=== PATIENT | male | born 1980 | race Hispanic/Latino ===

== ENCOUNTER 2018-03-03 21:27 | Emergency (ER) | payer OTHER ==
--- OUTSIDE RECORDS SUMMARY | 2018-03-03 21:29 | XMS REPORT ---
:1980 [facility] Address [address] [place] [address] Dr. Diaz. [address] [place] [address] Care Team Providers Name Role Phone DR DONITA VELASCO Unavailable Unavailable Problems This patient has no known problems. Allergies, Adverse Reactions, Alerts This patient has no known allergies or adverse reactions. Medications This patient has no known medications. Encounters Start End Encounter Admission Attending Care Care Encounter Date/Time Date/Time Type Type Clinicians Facility Department ID 2017-03-09 Inpatient C ARACELIS VELASCO [facility]VLG PT [id number] 10:30:00 DONITA
[2018-03-03 22:36] LABS: Urine Blood NEGATIVE (NEG); Urine Glucose NEGATIVE (NEG); Urine Protein NEGATIVE (NEG); Urine Specific Gravity 1.025 (1.005-1.030); Urine pH 5.5 (5.0-7.0)
[2018-03-03] MEDS ORDERED: CEFTRIAXONE 250 MG/VIAL ONE (23:13)
[2018-03-03] MEDS ORDERED: WATER FOR INJ,STERILE 10 ML ONE (23:13)
[2018-03-03] MEDS ORDERED: AZITHROMYCIN 1 GM PACKET ONE (23:13)
--- NOTE | 2018-03-03 23:26 | ER ---
Nurse's Notes [facility] Name: Aidan Gagnon Age: 37 yrs Sex: Male : 1980 Arrival Date: 03/03/2018 Time: 21:34 Bed 25 Private MD: None, None Diagnosis: Encounter for screening for other diseases and disorders-possible STD Presentation: 03/03 21:44 Presenting complaint: Patient states: I have been having pain in my genital area for a ed1 few days. Transition of care: patient was not received from another setting of care. Onset of symptoms was February 27, 2018. Risk Assessment: Do you want to hurt yourself or someone else? Patient reports no desire to harm self or others. Initial Sepsis Screen: Does the patient meet any 2 criteria? No. Patient's initial sepsis screen is negative. Does the patient have a suspected source of infection? No. Patient's initial sepsis screen is negative. Care prior to arrival: None. 21:44 Method Of Arrival: Ambulatory ed1 21:51 Acuity: ELSY 3 bb Triage Assessment: 21:46 General: Appears in no apparent distress. Behavior is calm, cooperative. Pain: ed1 Complains of pain in suprapubic area and groin Pain does not radiate. Pain currently is 6 out of 10 on a pain scale. Quality of pain is described as burning, Pain began 2-3 days ago. Is continuous. EENT: No signs and/or symptoms were reported regarding the EENT system. Neuro: Level of Consciousness is awake, alert, obeys commands, Oriented to person, place, time, situation. Cardiovascular: Denies chest pain, Heart tones S1 S2 present. Respiratory: Airway is patent Respiratory effort is even, unlabored, Respiratory pattern is regular, symmetrical, Denies cough, shortness of breath. GI: Abdomen is non-distended, Bowel sounds present X 4 quads. Abd is soft and non tender X 4 quads. Patient currently denies diarrhea, nausea, vomiting. : Urine is clear, Reports pain in suprapubic area. Derm: Skin is intact, is healthy with good turgor, Skin is dry, Skin is normal, Skin temperature is warm. Musculoskeletal: Circulation, motion, and sensation intact. Capillary refill < 3 seconds, in bilateral fingers. Range of motion: intact in all extremities. 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 - Social history:: Smoking status: Patient/guardian denies using tobacco. - Ebola Screening: : Patient negative for fever greater than or equal to 101.5 degrees Fahrenheit, and additional compatible Ebola Virus Disease symptoms Patient denies exposure to infectious person Patient denies travel to an Ebola-affected area in the 21 days before illness onset No symptoms or risks identified at this time. Screenin:49 Abuse screen: Denies threats or abuse. Denies injuries from another. Nutritional ed1 screening: No deficits noted. Tuberculosis screening: No symptoms or risk factors identified. Fall Risk None identified. Assessment: 21:49 General: See triage assessment. ed1 21:51 General: I agree with triage assessment. bb 22:38 Reassessment: Patient appears in no apparent distress at this time. No changes from ed1 previously documented assessment. Patient and/or family updated on plan of care and expected duration. Pain level reassessed. Patient is alert, oriented x 3, equal unlabored respirations, skin warm/dry/pink. Patient states symptoms have not improved. 23:48 Reassessment: Patient appears in no apparent distress at this time. Patient and/or ed1 family updated on plan of care and expected duration. Pain level reassessed. Patient is alert, oriented x 3, equal unlabored respirations, skin warm/dry/pink. Patient states feeling better. Patient states symptoms have improved. Vital Signs: 21:46 BP 152 / 90; Pulse 87; Resp 18; Temp 97.5(O); Pulse Ox 96% on R/A; Weight 95.25 kg (R); ed1 Height 5 ft. 7 in. (170.18 cm) (R); Pain 6/10; 22:38 BP 136 / 95; Pulse 82; Resp 17; Pulse Ox 96% on R/A; Pain 6/10; ed1 23:48 BP 129 / 76; Pulse 83; Resp 17; Pulse Ox 100% on R/A; Pain 2/10; ed1 21:46 Body Mass Index 32.89 (95.25 kg, 170.18 cm) ed1 ED Course: 21:34 Patient arrived in ED. mr 21:34 None, None is Private Physician. mr 21:38 Adriana Palma LVN is Primary Nurse. ed1 21:46 Arm band placed on left wrist. Patient placed in an exam room, on a stretcher, on pulse ed1 oximetry, Patient notified of wait time. 21:49 Awaiting ED provider evaluation. ed1 21:49 Patient has correct armband on for positive identification. Bed in low position. Call ed1 light in reach. Side rails up X 1. Pulse ox on. NIBP on. Warm blanket given. 21:51 Triage completed. bb 22:45 Holland Farmer PA is PHCP. cp 22:45 Alcides Panchal MD is Attending Physician. cp 23:20 Roderick Lemos MD is Referral Physician. cp 23:48 No provider procedures requiring assistance completed. Patient did not have IV access ed1 during this emergency room visit. Administered Medications: 23:12 Drug: Rocephin (cefTRIAXone) 250 mg Route: IM; Site: right ventrogluteal; ed1 23:50 Follow up: Response: No adverse reaction ed1 23:12 Drug: Zithromax 1 grams Route: PO; ed1 23:49 Follow up: Response: No adverse reaction ed1 Outcome: 23:26 Discharge ordered by . cp 23:48 Discharged to home ambulatory. ed1 23:48 Condition: good 23:48 Discharge instructions given to patient, Instructed on discharge instructions, follow up and referral plans. Demonstrated understanding of instructions, follow-up care. 23:50 Patient left the ED. ed1 Signatures: Dali Good mr ManningSandra, RN RN bb Adriana Palma LVN WAD BLANKING PRESS ADJUSTER ed1 Holland Farmer PA PA cp
--- NOTE | 2018-03-03 23:27 | EDPHYS ---
Physician Documentation [facility] Name: Aidan Gagnon Age: 37 yrs Sex: Male : 1980 Arrival Date: 03/03/2018 Time: 21:34 Bed 25 Private MD: None, None ED Physician Alcides Panchal HPI: 03/03 22:59 This 37 yrs old Male presents to ER via Ambulatory with complaints of Urinary cp Problem. 22:59 The patient presents with a possible STD exposure. cp 22:59 Associated signs and symptoms: Pertinent positives: dysuria, penile discharge. Patient cp reports having unprotected intercourse with new partner. 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 - Social history:: Smoking status: Patient/guardian denies using tobacco. - Ebola Screening: : Patient negative for fever greater than or equal to 101.5 degrees Fahrenheit, and additional compatible Ebola Virus Disease symptoms Patient denies exposure to infectious person Patient denies travel to an Ebola-affected area in the 21 days before illness onset No symptoms or risks identified at this time. ROS: 23:05 Constitutional: Negative for body aches, chills, fever, poor PO intake. cp 23:05 Cardiovascular: Negative for chest pain. cp 23:05 Respiratory: Negative for cough, shortness of breath, wheezing. 23:05 Abdomen/GI: Negative for abdominal pain, nausea, vomiting, and diarrhea. 23:05 Back: Negative for pain at rest, pain with movement, radiated pain. 23:05 : Positive for burning with urination, penile discharge, penile pain, Negative for hematuria, flank pain, testicular pain 23:05 Skin: Negative for cellulitis, rash. 23:05 Neuro: Negative for headache, weakness. 23:05 All other systems are negative. Exam: 23:05 Head/Face: Normocephalic, atraumatic. cp 23:05 Constitutional: The patient appears in no acute distress, alert, awake, comfortable, non-toxic, well developed, well nourished. 23:05 Eyes: Periorbital structures: appear normal, Conjunctiva: normal, no exudate, no injection, Lids and lashes: appear normal, bilaterally. 23:05 ENT: External ear(s): are unremarkable, Nose: is normal, Mouth: is normal, Posterior pharynx: Airway: no evidence of obstruction, patent. 23:05 Chest/axilla: Inspection: normal. 23:05 Cardiovascular: Rate: normal. 23:05 Respiratory: the patient does not display signs of respiratory distress, Respirations: normal. 23:05 Abdomen/GI: Inspection: abdomen appears normal, Palpation: abdomen is soft and non-tender, in all quadrants, voluntary guarding, is not appreciated, involuntary guarding, is not appreciated. 23:05 : Male external genitalia: Circumcision noted. swelling: is not appreciated, tenderness, is not appreciated. 23:05 Skin: lesion(s), are not present, no rash present. Vital Signs: 21:46 BP 152 / 90; Pulse 87; Resp 18; Temp 97.5(O); Pulse Ox 96% on R/A; Weight 95.25 kg (R); ed1 Height 5 ft. 7 in. (170.18 cm) (R); Pain 6/10; 22:38 BP 136 / 95; Pulse 82; Resp 17; Pulse Ox 96% on R/A; Pain 6/10; ed1 23:48 BP 129 / 76; Pulse 83; Resp 17; Pulse Ox 100% on R/A; Pain 2/10; ed1 21:46 Body Mass Index 32.89 (95.25 kg, 170.18 cm) ed1 MDM: 22:45 Patient medically screened. cp 23:25 Differential diagnosis: UTI, prostatitis, urethritis, STD. cp 23:25 Data reviewed: vital signs, nurses notes, lab test result(s), urinalysis, and as a cp result, I will discharge patient. Counseling: I had a detailed discussion with the patient and/or guardian regarding: the historical points, exam findings, and any diagnostic results supporting the discharge/admit diagnosis, lab results, to return to the emergency department if symptoms worsen or persist or if there are any questions or concerns that arise at home. Response to treatment: the patient's symptoms have mildly improved after treatment, and as a result, I will discharge patient. Special discussion: risk of reinfection if sexual partners are not treated. 03/03 22:23 Order name: Urine Dipstick--Ancillary (enter results); Complete Time: 22:45 em1 03/03 22:23 Order name: Urine Dipstick-Ancillary (obtain specimen); Complete Time: 22:23 em1 Administered Medications: 23:12 Drug: Rocephin (cefTRIAXone) 250 mg Route: IM; Site: right ventrogluteal; ed1 23:50 Follow up: Response: No adverse reaction ed1 23:12 Drug: Zithromax 1 grams Route: PO; ed1 23:49 Follow up: Response: No adverse reaction ed1 Disposition: 03/04 00:00 Chart complete. cp 01:25 Co-signature as Attending Physician, Alcides Panchal MD. pktaisha Disposition: 03/03/18 23:26 Discharged to Home. Impression: Encounter for screening for other diseases and disorders - possible STD. - Condition is Stable. - Discharge Instructions: Sexually Transmitted Disease. - Medication Reconciliation Form, Thank You Letter, Antibiotic Education, Prescription Opioid Use form. - Follow up: Roderick Lemos MD; When: 1 week; Reason: symptoms continue. - Problem is new. - Symptoms have improved. Signatures: Dispatcher [employer] EDMS Alcides Panchal MD MD pkl Paco Schreiber em1 Adriana Palma LVN LVN ed1 Holland Farmer PA PA cp Corrections: (The following items were deleted from the chart) 03/03 23:50 23:26 03/03/2018 23:26 Discharged to Home. Impression: Encounter for screening for ed1 other diseases and disorders - possible STD. Condition is Stable. Forms are Medication Reconciliation Form, Thank You Letter, Antibiotic Education, Prescription Opioid Use. Follow up: Roderick Lemos; When: 1 week; Reason: symptoms continue. Problem is new. Symptoms have improved. cp 03/04 20:04 03/03 22:05 Constitutional: Negative for body aches, chills, fever, poor PO intake, cp cp 03/04 20:04 03/03 22:05 Eyes: Negative for injury, pain, redness, and discharge, cp cp 03/04 20:04 03/03 22:05 Abdomen/GI: Negative for abdominal pain, nausea, vomiting, and diarrhea, cp cp 03/04 20:03/03 22:05 : Positive for burning with urination, penile pain, penile discharge, cp Negative for testicular pain cp 03/04 19:03/03 22:05 Back: Negative for pain at rest, pain with movement, cp cp 03/04 22:05 Skin: Negative for cellulitis, rash, cp cp 03/04 22:05 All other systems are negative, cp cp
[2018-03-03 23:55] VITALS: TEMP 97.5
[2018-03-03 23:58] VITALS: BP 129/76; O2SAT 100
== END 2018-03-03 23:50 | disposition home or self-care (01) ==
LOC: ER 21:27
DX: Z20.2 Contact with and (suspected) exposure to infections with a predominantly sexual mode of transmission (principal)
CPT/HCPCS: 81003; 96372; 99283; J0696

== ENCOUNTER 2018-06-27 09:03 | Emergency (ER) | payer OTHER ==
[2018-06-27] MEDS ORDERED: NA CHLORIDE 0.9% 1,000 ML ONE (09:34)
--- OUTSIDE RECORDS SUMMARY | 2018-06-27 09:37 | XMS REPORT ---
:1980 [facility] Address [address] [place] [address] Dr. Diaz. [address] [place] [address] Care Team Providers Name Role Phone DR DONITA VELASCO Unavailable Unavailable Problems This patient has no known problems. Allergies, Adverse Reactions, Alerts This patient has no known allergies or adverse reactions. Medications This patient has no known medications. Encounters Start End Encounter Admission Attending Care Care Encounter Date/Time Date/Time Type Type Clinicians Facility Department ID 2017-03-09 Inpatient C ARACELIS VELASCO [facility]VLG PT [id number] 10:30:00 DONITA
[2018-06-27 09:39] LABS: Absolute Lymphocytes (CBC) 0.6 K/uL (0.7-4.9); Absolute Monocytes 0.4 K/uL (0.1-1.3); Absolute Neutrophil 7.6 K/uL (1.8-8.0); Basophils % 0.2 % (0-1.3); Eosinophils % 0.9 % (0-4.4); Hematocrit 51.5 % (39.6-49.0); Lymphocytes % 6.6 % (15.3-44.8); MPV 9.1 fL (7.6-11.3); Monocytes % 4.2 % (3.3-12.3); RBC Red Blood Cell Count 5.79 M/uL (4.33-5.43)
[2018-06-27 09:57] LABS: Albumin 4.1 g/dL (3.4-5.0); Bilirubin Direct 0.4 mg/dL (0-0.2); Bilirubin Total 2.5 mg/dL (0.2-1.0); Potassium 3.7 mmol/L (3.5-5.1)
[2018-06-27 10:19] LABS: Blood Morphology Comment NOT SEEN (NOT SEEN); Platelet Estimate DECR; Urine White Blood Cell Casts OK
--- NOTE | 2018-06-27 11:19 | RAD REPORT ---
EXAM DESCRIPTION: CTAbdomen Pelvis W Contrast - 06/27/2018 11:06 am CLINICAL HISTORY: Abdominal pain. ABD PAIN COMPARISON: No comparisons TECHNIQUE: Biphasic CT imaging of the abdomen and pelvis was performed with 100 ml non-ionic IV cont rast. All CT scans are performed using dose optimization technique as appropriate and may include automated exposure control or mA/KV adjustment according to patient size. FINDINGS: The lung bases are clear. The liver demonstrates diffuse fatty infiltration. The spleen, pancreas, adrenal glands and kidneys a re within normal limits. No bowel obstruction, free air, free fluid or abscess. Small fat containing umbilical hernia. The alvarez endix is normal. No evidence of significant lymphadenopathy. No suspicious bony findings. IMPRESSION: No acute intra-abdominal or pelvic finding. Fatty liver.
--- NOTE | 2018-06-27 11:26 | EDPHYS ---
Physician Documentation [facility] Name: Aidan Gagnon Age: 38 yrs Sex: Male : 1980 Arrival Date: 06/27/2018 Time: 09:06 Bed 18 Private MD: Unknown, Unknown ED Physician Elder Hansen HPI: 06/27 11:22 This 38 yrs old Male presents to ER via Ambulatory with complaints of Fever, kb Nausea/Vomiting/Diarrhea. 11:22 The patient presents with abdominal pain in the left upper quadrant, in the left lower kb quadrant. Onset: The symptoms/episode began/occurred yesterday. The symptoms do not radiate. Associated signs and symptoms: Pertinent positives: diarrhea, nausea. The symptoms are described as constant. Modifying factors: The symptoms are alleviated by nothing, the symptoms are aggravated by nothing. Severity of pain: At its worst the pain was moderate in the emergency department the pain is unchanged. The patient has experienced a previous episode. The patient has not recently seen a physician. Pt reports subjective fever, chills, abd pain, nausea and diarrhea since yesterday. Symptoms have progessively gotten worse. Has had this once in the past and it was a virus. 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 - Social history:: Smoking status: Patient/guardian denies using tobacco, Patient/guardian denies using alcohol. - Ebola Screening: : Patient negative for fever greater than or equal to 101.5 degrees Fahrenheit, and additional compatible Ebola Virus Disease symptoms Patient denies exposure to infectious person Patient denies travel to an Ebola-affected area in the 21 days before illness onset. ROS: 11:21 ENT: Negative for injury, pain, and discharge, Neck: Negative for injury, pain, and kb swelling, Cardiovascular: Negative for chest pain, palpitations, and edema, Respiratory: Negative for shortness of breath, cough, wheezing, and pleuritic chest pain, Back: Negative for injury and pain, : Negative for injury, bleeding, discharge, and swelling, MS/Extremity: Negative for injury and deformity, Skin: Negative for injury, rash, and discoloration, Neuro: Negative for headache, weakness, numbness, tingling, and seizure. 11:21 Constitutional: Positive for chills, fever, Negative for body aches, fatigue, malaise, poor PO intake, weight loss. 11:21 Abdomen/GI: Positive for abdominal pain, nausea, diarrhea, Negative for vomiting, constipation, abdominal cramps, abdominal distension, anorexia. Exam: 11:21 Constitutional: This is a well developed, well nourished patient who is awake, alert, kb and in no acute distress. Head/Face: Normocephalic, atraumatic. Chest/axilla: Normal chest wall appearance and motion. Nontender with no deformity. No lesions are appreciated. Cardiovascular: Regular rate and rhythm with a normal S1 and S2. No gallops, murmurs, or rubs. Normal PMI, no JVD. No pulse deficits. Respiratory: Lungs have equal breath sounds bilaterally, clear to auscultation and percussion. No rales, rhonchi or wheezes noted. No increased work of breathing, no retractions or nasal flaring. Back: No spinal tenderness. No costovertebral tenderness. Full range of motion. Skin: Warm, dry with normal turgor. Normal color with no rashes, no lesions, and no evidence of cellulitis. MS/ Extremity: Pulses equal, no cyanosis. Neurovascular intact. Full, normal range of motion. Neuro: Awake and alert, GCS 15, oriented to person, place, time, and situation. Cranial nerves II-XII grossly intact. Motor strength 5/5 in all extremities. Sensory grossly intact. Cerebellar exam normal. Normal gait. 11:21 Abdomen/GI: Inspection: abdomen appears normal, Bowel sounds: normal, in all quadrants, Palpation: soft, in all quadrants, moderate abdominal tenderness, in the left lower quadrant. Vital Signs: 09:18 BP 133 / 95; Pulse 113; Resp 18; Temp 99.9(O); Pulse Ox 98% on R/A; Weight 94.35 kg; hj Height 5 ft. 8 in. (172.72 cm); 11:13 BP 130 / 90; Pulse 92; Resp 18; Pulse Ox 98% on R/A; hj 11:36 BP 128 / 89; Pulse 90; Resp 18; Temp 98.1(O); Pulse Ox 100% on R/A; hj 09:18 Body Mass Index 31.63 (94.35 kg, 172.72 cm) hj MDM: 09:10 Patient medically screened. kb 11:21 Data reviewed: vital signs, nurses notes. Data interpreted: Pulse oximetry: on room air kb is 98 %. Interpretation: normal. Counseling: I had a detailed discussion with the patient and/or guardian regarding: the historical points, exam findings, and any diagnostic results supporting the discharge/admit diagnosis, lab results, radiology results, the need for outpatient follow up, a family practitioner, to return to the emergency department if symptoms worsen or persist or if there are any questions or concerns that arise at home. 06/27 09:15 Order name: Basic Metabolic Panel; Complete Time: 09:59 kb 06/27 09:15 Order name: CBC with Diff; Complete Time: 10:20 kb 06/27 09:15 Order name: Hepatic Function; Complete Time: 09:59 kb 06/27 09:15 Order name: Lipase; Complete Time: 09:59 kb 06/27 10:19 Order name: CBC Smear Scan; Complete Time: 10:20 EDMS 06/27 09:15 Order name: IV Saline Lock; Complete Time: 09:33 kb 06/27 09:15 Order name: Labs collected and sent; Complete Time: 09:33 kb 06/27 09:16 Order name: CT Abd/Pelvis - W/Contrast; Complete Time: 11:20 kb Administered Medications: 09:25 Drug: NS 0.9% 1000 ml Route: IV; Rate: 1000 ml; Site: right antecubital; hj 11:37 Follow up: IV Status: Completed infusion; IV Intake: 1000ml Disposition: 16:59 Co-signature as Attending Physician, Elder Hansen MD. rn Disposition: 06/27/18 11:25 Discharged to Home. Impression: Diarrhea, unspecified, Lower abdominal pain, unspecified. - Condition is Stable. - Discharge Instructions: Food Choices to Help Relieve Diarrhea, Adult, Viral Gastroenteritis, Adult, [id number]. - Prescriptions for Bentyl 20 mg Oral Tablet - take 1 tablet by ORAL route every 6 hours As needed; 20 tablet. Zofran 4 mg Oral Tablet - take 1 tablet by ORAL route every 6 hours As needed; 20 tablet. - Medication Reconciliation Form, Thank You Letter, Antibiotic Education, Prescription Opioid Use, Work release form form. - Follow up: Emergency Department; When: As needed; Reason: Worsening of condition. Follow up: Private Physician; When: 2 - 3 days; Reason: Recheck today's complaints, Continuance of care, Re-evaluation by your physician. Signatures: Dispatcher [employer] [facility] iDana Benites, BAND SAW OPERATOR-C BAND SAW OPERATOR-Ckb Elder Hansen MD MD rn Joaquin, Henry, RN RN hj Corrections: (The following items were deleted from the chart) 09:20 09:15 Abdomen Pelvis W [id number] ordered. [facility] 11:53 11:25 06/27/2018 11:25 Discharged to Home. Impression: Diarrhea, unspecified; Lower hj abdominal pain, unspecified. Condition is Stable. Forms are Medication Reconciliation Form, Thank You Letter, Antibiotic Education, Prescription Opioid Use. Follow up: Emergency Department; When: As needed; Reason: Worsening of condition. Follow up: Private Physician; When: 2 - 3 days; Reason: Recheck today's complaints, Continuance of care, Re-evaluation by your physician. kb
--- NOTE | 2018-06-27 11:26 | ER ---
Nurse's Notes [facility] Name: Aidan Gagnon Age: 38 yrs Sex: Male : 1980 Arrival Date: 06/27/2018 Time: 09:06 Bed 18 Private MD: Unknown, Unknown Diagnosis: Diarrhea, unspecified;Lower abdominal pain, unspecified Presentation: 06/27 09:14 Presenting complaint: Patient states: yesterday, around 4:30 pm i started having fever, hj nausea and diarrhea; denies vomiting; reports abdominal pain, diffuse, took nyquil and tylenol last night and 1 dose today;. Transition of care: patient was not received from another setting of care. Onset of symptoms was June 27, 2018. Risk Assessment: Do you want to hurt yourself or someone else? Patient reports no desire to harm self or others. Initial Sepsis Screen: Does the patient meet any 2 criteria? No. Patient's initial sepsis screen is negative. Does the patient have a suspected source of infection? Yes:. Care prior to arrival: None. 09:14 Method Of Arrival: Ambulatory 09:14 Acuity: ELSY 3 hj Triage Assessment: 09:19 General: Appears in no apparent distress. uncomfortable, Behavior is calm, cooperative, hj appropriate for age. Pain: Complains of pain in abdomen. GI: Reports lower abdominal pain, upper abdominal pain, nausea. 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 - Social history:: Smoking status: Patient/guardian denies using tobacco, Patient/guardian denies using alcohol. - Ebola Screening: : Patient negative for fever greater than or equal to 101.5 degrees Fahrenheit, and additional compatible Ebola Virus Disease symptoms Patient denies exposure to infectious person Patient denies travel to an Ebola-affected area in the 21 days before illness onset. Screenin:18 Abuse screen: Denies threats or abuse. Denies injuries from another. Nutritional hj screening: No deficits noted. Tuberculosis screening: No symptoms or risk factors identified. Fall Risk None identified. Assessment: 09:19 GI: Abdomen is non-distended. hj 09:19 General: Appears in no apparent distress. uncomfortable, Behavior is calm, cooperative, hj appropriate for age. Pain: Complains of pain in abdomen. Neuro: Level of Consciousness is awake, alert, obeys commands, Oriented to person, place, time, situation, Appropriate for age. Cardiovascular: Capillary refill < 3 seconds Patient's skin is warm and dry. Respiratory: Airway is patent Respiratory effort is even, unlabored, Respiratory pattern is regular, symmetrical. : No signs and/or symptoms were reported regarding the genitourinary system. EENT: No signs and/or symptoms were reported regarding the EENT system. Derm: No signs and/or symptoms reported regarding the dermatologic system. Musculoskeletal: No signs and/or symptoms reported regarding the musculoskeletal system. 09:44 Reassessment: pt finished with oral contrast; therapy tech informed;. hj 10:30 Reassessment: Patient and/or family updated on plan of care and expected duration. Pain hj level reassessed. Patient is alert, oriented x 3, equal unlabored respirations, skin warm/dry/pink. came back from CT: awaiting results and POC;. 10:30 Reassessment: Patient and/or family updated on plan of care and expected duration. Pain hj level reassessed. Patient is alert, oriented x 3, equal unlabored respirations, skin warm/dry/pink. Vital Signs: 09:18 BP 133 / 95; Pulse 113; Resp 18; Temp 99.9(O); Pulse Ox 98% on R/A; Weight 94.35 kg; hj Height 5 ft. 8 in. (172.72 cm); 11:13 BP 130 / 90; Pulse 92; Resp 18; Pulse Ox 98% on R/A; hj 11:36 BP 128 / 89; Pulse 90; Resp 18; Temp 98.1(O); Pulse Ox 100% on R/A; hj 09:18 Body Mass Index 31.63 (94.35 kg, 172.72 cm) ED Course: 09:06 Patient arrived in ED. ag5 09:07 Unknown, Unknown is Private Physician. ag5 09:10 Diana Benites FNP-C is [facility]. kb 09:10 Elder Hansen MD is Attending Physician. kb 09:13 Boni Alfaro, RN is Primary Nurse. hj 09:16 Triage completed. hj 09:19 Arm band placed on right wrist. hj 09:19 Patient has correct armband on for positive identification. Placed in gown. Bed in low hj position. Call light in reach. Side rails up X 1. Adult w/ patient. 09:25 Initial lab(s) drawn, by me, sent to lab. Inserted saline lock: 22 gauge in right hj antecubital area, using aseptic technique. Blood collected. 11:07 CT Abd/Pelvis - W/Contrast In Process Unspecified. EDMS 11:35 No provider procedures requiring assistance completed. IV discontinued, intact, hj bleeding controlled, No redness/swelling at site. Pressure dressing applied. Administered Medications: 09:25 Drug: NS 0.9% 1000 ml Route: IV; Rate: 1000 ml; Site: right antecubital; hj 11:37 Follow up: IV Status: Completed infusion; IV Intake: 1000ml hj Intake: 11:37 IV: 1000ml; Total: 1000ml. hj Outcome: 11:25 Discharge ordered by . kb 11:36 Discharged to home ambulatory, with family. hj 11:36 Condition: stable 11:36 Discharge instructions given to patient, family, Instructed on discharge instructions, follow up and referral plans. medication usage, Demonstrated understanding of instructions, follow-up care, medications, Prescriptions given X 2. 11:53 Patient left the ED. Signatures: Dispatcher [employer] EDMS Diana Benites, Boni Monreal RN RN Daisy Lo ag5
[2018-06-27 12:40] VITALS: BP 128/89; TEMP 98.1; O2SAT 100
== END 2018-06-27 11:53 | disposition home or self-care (01) ==
LOC: ER 09:03
DX: R10.32 Left lower quadrant pain (principal); R10.12 Left upper quadrant pain; R19.7 Diarrhea, unspecified; R11.0 Nausea
CPT/HCPCS: 36415; 74177; 80048; 80076; 83690; 85025; 96360; 96361; 99284; J7030; Q9967

== ENCOUNTER 2018-12-10 04:16 | Emergency (ER) | payer OTHER ==
[2018-12-10] MEDS ORDERED: ONDANSETRON 4 MG/2 ML VIAL ONE (05:28)
[2018-12-10] MEDS ORDERED: DIPHENOX/ATROP SULF 1 TAB PO ONE (05:29)
[2018-12-10] MEDS ORDERED: NA CHLORIDE 0.9% 1,000 ML ONE (05:29)
[2018-12-10 06:00] LABS: Absolute Lymphocytes (CBC) 1.1 K/uL (0.7-4.9); Basophils % 0.3 % (0-1.3); Hematocrit 51.9 % (39.6-49.0); Lymphocytes % 8.1 % (15.3-44.8); MPV 10.3 fL (7.6-11.3); RBC Red Blood Cell Count 5.74 M/uL (4.33-5.43)
[2018-12-10 06:04] LABS: Albumin 4.6 g/dL (3.4-5.0); Bilirubin Direct 0.3 mg/dL (0-0.2); Bilirubin Total 2.2 mg/dL (0.2-1.0); Potassium 3.8 mmol/L (3.5-5.1); Protein, Total 8.6 g/dL (6.4-8.2)
--- NOTE | 2018-12-10 06:14 | ER ---
Nurse's Notes [facility] Name: Aidan Gagnon Age: 38 yrs Sex: Male : 1980 Arrival Date: 12/10/2018 Time: 04:18 Bed 16 Private MD: Diagnosis: Gastroterritis Presentation: 12/10 04:41 Presenting complaint: Patient states: he is having diarrhea since last evening. Started wh at 6:00 pm accompanied with nausea and vomiting. Transition of care: patient was not received from another setting of care. Onset of symptoms was December 09, 2018. Risk Assessment: Do you want to hurt yourself or someone else? Patient reports no desire to harm self or others. Initial Sepsis Screen: Does the patient meet any 2 criteria? HR > 90 bpm. Does the patient have a suspected source of infection? No. Patient's initial sepsis screen is negative. Care prior to arrival: None. 04:41 Method Of Arrival: Ambulatory 04:41 Acuity: ELSY 3 Historical: - Allergies: 04:44 steroids; - Home Meds: 04:44 None [Active]; - PMHx: 04:44 Hypertension; - Immunization history:: Adult Immunizations unknown. - Social history:: Smoking status: Patient/guardian denies using tobacco. - Ebola Screening: : Patient negative for fever greater than or equal to 101.5 degrees Fahrenheit, and additional compatible Ebola Virus Disease symptoms Patient denies exposure to infectious person. Screenin:43 Abuse screen: Denies threats or abuse. Denies injuries from another. Nutritional screening: No deficits noted. Tuberculosis screening: No symptoms or risk factors identified. Fall Risk None identified. Assessment: 04:44 General: Appears in no apparent distress. Behavior is calm, cooperative, appropriate wh for age. Pain: Denies pain. Neuro: Level of Consciousness is awake, alert, obeys commands, Oriented to person, place, time, situation, Appropriate for age. Cardiovascular: Heart tones S1 S2. Respiratory: Airway is patent Respiratory effort is even, unlabored, Respiratory pattern is regular, symmetrical. GI: Abdomen is flat, non-distended, Bowel sounds present X 4 quads. Abd is soft and non tender X 4 quads. GI: Reports diarrhea, nausea, vomiting. : No signs and/or symptoms were reported regarding the genitourinary system. EENT: No signs and/or symptoms were reported regarding the EENT system. Derm: Skin is intact, is healthy with good turgor, Skin is pink, warm \T\ dry. normal. Musculoskeletal: Circulation, motion, and sensation intact. 06:00 Reassessment: Patient appears in no apparent distress at this time. No changes from previously documented assessment. Patient and/or family updated on plan of care and expected duration. Pain level reassessed. Patient is alert, oriented x 3, equal unlabored respirations, skin warm/dry/pink. Vital Signs: 04:45 BP 134 / 90; Pulse 106; Resp 18; Temp 97.8; Pulse Ox 97% on R/A; wh 06:01 BP 119 / 83; Pulse 96; Resp 18; Pulse Ox 97% on R/A; ED Course: 04:18 Patient arrived in ED. ds1 04:28 Tao Francois is Primary Nurse. wh 04:35 Alcides Panchal MD is Attending Physician. pkl 04:43 Triage completed. 04:43 Arm band placed on right wrist. 04:44 Patient has correct armband on for positive identification. Bed in low position. Call light in reach. Side rails up X 1. Pulse ox on. NIBP on. 04:52 Initial lab(s) drawn, by me, held in ED. Inserted saline lock: 18 gauge in left jb4 antecubital area, using aseptic technique. Blood collected. 06:27 No provider procedures requiring assistance completed. IV discontinued, intact, bleeding controlled, No redness/swelling at site. Administered Medications: 05:41 Drug: NS 0.9% 1000 ml Route: IV; Rate: 1000 ml; Site: left antecubital; 06:27 Follow up: Response: No adverse reaction; IV Status: Completed infusion 05:41 Drug: Zofran 4 mg Route: IVP; Site: left antecubital; 06:27 Follow up: Response: No adverse reaction; Nausea is decreased 05:41 Drug: LoMOTIL 2 tabs Route: PO; 06:27 Follow up: Response: No adverse reaction Outcome: 06:13 Discharge ordered by . pkl 06:28 Discharged to home ambulatory, with family. 06:28 Condition: good 06:28 Discharge instructions given to patient, family, Instructed on discharge instructions, follow up and referral plans. medication usage, POC Gastronenteritis Demonstrated understanding of instructions, follow-up care, medications, POC Prescriptions given X 2. 06:28 Patient left the ED. Signatures: Alcides Panchal MD MD pkl Sanford, Demi ds1 Kevin Boucher, RN RN jb4 Tao Francois
--- NOTE | 2018-12-10 06:14 | EDPHYS ---
Physician Documentation [facility] Name: Aidan Gagnon Age: 38 yrs Sex: Male : 1980 Arrival Date: 12/10/2018 Time: 04:18 Bed 16 Private MD: ED Physician Alcides Panchal HPI: 12/10 05:26 This 38 yrs old Male presents to ER via Ambulatory with complaints of pkl Nausea/Vomiting/Diarrhea. 05:26 The patient presents to the emergency department with nausea, vomiting, diarrhea. pkl Onset: The symptoms/episode began/occurred just prior to arrival, 8 hour(s) ago. Associated signs and symptoms: The patient has no apparent associated signs or symptoms. Historical: - Allergies: 04:44 steroids; wh - Home Meds: 04:44 None [Active]; wh - PMHx: 04:44 Hypertension; - Immunization history:: Adult Immunizations unknown. - Social history:: Smoking status: Patient/guardian denies using tobacco. - Ebola Screening: : Patient negative for fever greater than or equal to 101.5 degrees Fahrenheit, and additional compatible Ebola Virus Disease symptoms Patient denies exposure to infectious person. ROS: 05:26 Eyes: Negative for injury, pain, redness, and discharge, ENT: Negative for injury, pkl pain, and discharge, Neck: Negative for injury, pain, and swelling, Cardiovascular: Negative for chest pain, palpitations, and edema, Respiratory: Negative for shortness of breath, cough, wheezing, and pleuritic chest pain. 05:26 Abdomen/GI: Positive for nausea, vomiting, and diarrhea, abdominal cramps. 05:26 Back: Negative for acute changes. 05:26 : Negative for urinary symptoms. 05:26 MS/extremity: Negative for acute changes. 05:26 Skin: Negative for rash. 05:26 Neuro: Negative for altered mental status. Exam: 05:26 Head/Face: Normocephalic, atraumatic. Eyes: Pupils equal round and reactive to light, pkl extra-ocular motions intact. Lids and lashes normal. Conjunctiva and sclera are non-icteric and not injected. Cornea within normal limits. Periorbital areas with no swelling, redness, or edema. ENT: Nares patent. No nasal discharge, no septal abnormalities noted. Tympanic membranes are normal and external auditory canals are clear. Oropharynx with no redness, swelling, or masses, exudates, or evidence of obstruction, uvula midline. Mucous membranes moist. Neck: Trachea midline, no thyromegaly or masses palpated, and no cervical lymphadenopathy. Supple, full range of motion without nuchal rigidity, or vertebral point tenderness. No Meningismus. Chest/axilla: Normal chest wall appearance and motion. Nontender with no deformity. No lesions are appreciated. Cardiovascular: Regular rate and rhythm with a normal S1 and S2. No gallops, murmurs, or rubs. Normal PMI, no JVD. No pulse deficits. Respiratory: Lungs have equal breath sounds bilaterally, clear to auscultation and percussion. No rales, rhonchi or wheezes noted. No increased work of breathing, no retractions or nasal flaring. Abdomen/GI: Soft, non-tender, with normal bowel sounds. No distension or tympany. No guarding or rebound. No evidence of tenderness throughout. Back: No spinal tenderness. No costovertebral tenderness. Full range of motion. Skin: Warm, dry with normal turgor. Normal color with no rashes, no lesions, and no evidence of cellulitis. MS/ Extremity: Pulses equal, no cyanosis. Neurovascular intact. Full, normal range of motion. Neuro: Awake and alert, GCS 15, oriented to person, place, time, and situation. Cranial nerves II-XII grossly intact. Motor strength 5/5 in all extremities. Sensory grossly intact. Cerebellar exam normal. Normal gait. Vital Signs: 04:45 BP 134 / 90; Pulse 106; Resp 18; Temp 97.8; Pulse Ox 97% on R/A; wh 06:01 BP 119 / 83; Pulse 96; Resp 18; Pulse Ox 97% on R/A; wh MDM: 04:35 Patient medically screened. pkl 06:10 Data reviewed: vital signs, nurses notes, lab test result(s). ED course: Patient pkl feeling better. No vomiting or diarrhea noted in ER. 06:13 ED course: Re - exam on abdomen. No localized tenderness or guarding noted. pkl 12/10 05:26 Order name: Basic Metabolic Panel; Complete Time: 06:06 pkl 12/10 05:26 Order name: CBC with Diff; Complete Time: 06:07 pkl 12/10 05:26 Order name: Creatinine for Radiology; Complete Time: 06:04 pkl 12/10 05:26 Order name: Hepatic Function; Complete Time: 06:06 pkl 12/10 05:26 Order name: Lipase; Complete Time: 06:06 pkl 12/10 05:26 Order name: Stool Culture pkl 12/10 05:26 Order name: IV Saline Lock; Complete Time: 05:27 pkl 12/10 05:26 Order name: Labs collected and sent; Complete Time: : pkl Administered Medications: 05:41 Drug: NS 0.9% 1000 ml Route: IV; Rate: 1000 ml; Site: left antecubital; 06:27 Follow up: Response: No adverse reaction; IV Status: Completed infusion 05:41 Drug: Zofran 4 mg Route: IVP; Site: left antecubital; 06:27 Follow up: Response: No adverse reaction; Nausea is decreased 05:41 Drug: LoMOTIL 2 tabs Route: PO; 06:27 Follow up: Response: No adverse reaction Disposition: 12/10/18 06:13 Discharged to Home. Impression: Gastroterritis. - Condition is Stable. - Prescriptions for Zofran 4 mg Oral Tablet - take 1 tablet by ORAL route every 12 hours As needed; 6 tablet. Cipro 500 mg Oral Tablet - take 1 tablet by ORAL route every 12 hours for 5 days; 10 tablet. - Work release form, Medication Reconciliation Form, Thank You Letter, Antibiotic Education, Prescription Opioid Use form. - Follow up: Private Physician; When: 1 - 2 days; Reason: Re-evaluation by your physician. - Problem is new. - Symptoms have improved. Signatures: Dispatcher [employer] Alcides Greenfield MD MD pkl Habalo, Winsy Corrections: (The following items were deleted from the chart) 06:28 06:13 12/10/2018 06:13 Discharged to Home. Impression: Gastroterritis. Condition is Stable. Forms are Medication Reconciliation Form, Thank You Letter, Antibiotic Education, Prescription Opioid Use. Follow up: Private Physician; When: 1 - 2 days; Reason: Re-evaluation by your physician. Problem is new. Symptoms have improved. pkl
[2018-12-10 06:35] VITALS: TEMP 97.8; O2SAT 97
[2018-12-10 06:36] VITALS: BP 119/83
== END 2018-12-10 06:28 | disposition home or self-care (01) ==
LOC: ER 04:16
DX: K52.9 Noninfective gastroenteritis and colitis, unspecified (principal); I10 Essential (primary) hypertension; Z88.8 Allergy status to other drugs, medicaments and biological substances
CPT/HCPCS: 96361; 87045; 85025; 80048; 36415; 80076; 87046; 83690; 96374; 99284; J7030; J2405

== ENCOUNTER 2019-05-20 09:39 | Emergency (ER) | payer BC, OTHER ==
--- OUTSIDE RECORDS SUMMARY | 2019-05-20 09:47 | XMS REPORT ---
:1980 [facility] Address [address] [place] [address] [address]. [address] [place] [address] Care Team Providers Name Role Phone DR DONITA VELASCO Unavailable Unavailable Problems This patient has no known problems. Allergies, Adverse Reactions, Alerts This patient has no known allergies or adverse reactions. Medications This patient has no known medications. Encounters Start End Encounter Admission Attending Care Care Encounter Date/Time Date/Time Type Type Clinicians Facility Department ID 2017-03-09 Inpatient C ARACELIS VELASCO [facility] PT [id number] 10:30:00 DONITA
--- NOTE | 2019-05-20 10:12 | EDPHYS ---
Physician Documentation [facility] Name: Aidan Gagnon Age: 39 yrs Sex: Male : 1980 Arrival Date: 05/20/2019 Time: 09:45 Bed 6 Private MD: ED Physician Elder Hansen HPI: 05/19 10:02 This 39 yrs old Male presents to ER via Ambulatory with complaints of Cough. rn 10:02 The patient or guardian reports cough, that is intermittent, described as mild, with no rn sputum. 10:02 Onset: The symptoms/episode began/occurred yesterday. Severity of symptoms: At their rn worst the symptoms were very mild. Modifying factors: The symptoms are alleviated by nothing, the symptoms are aggravated by nothing. The patient has experienced similar episodes in the past. Reports dry non-productive cough since yesterday, no fever, no travel, no sick contacts, feels fine and attributes cough to allergies which he has experienced before but doesn't take any allergy medication. 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 Sent by work for "clearance". States would not have come if work didn't send him.. Historical: - Allergies: 09:55 steroids; ss - Home Meds: 09:55 None [Active]; ss - PMHx: 09:55 Hypertension; ss - PSHx: 09:55 facial reconstruction; ss - Immunization history:: Adult Immunizations up to date. - Social history:: Smoking status: Patient denies any tobacco usage or history of. - Family history:: not pertinent. ROS: 10:02 Constitutional: Negative for fever, chills, and weight loss, Eyes: Negative for injury, rn pain, redness, and discharge, Neck: Negative for injury, pain, and swelling, Cardiovascular: Negative for chest pain, palpitations, and edema, Respiratory: Negative for shortness of breath, wheezing, and pleuritic chest pain, Abdomen/GI: Negative for abdominal pain, nausea, vomiting, diarrhea, and constipation, MS/Extremity: Negative for injury and deformity, Skin: Negative for injury, rash, and discoloration, Neuro: Negative for headache, weakness, numbness, tingling, and seizure. Exam: 10:02 Constitutional: This is a well developed, well nourished patient who is awake, alert, rn and in no acute distress. Ambulatory to room without difficulty or assistance. Head/Face: Normocephalic, atraumatic. Eyes: Pupils equal round and reactive to light, extra-ocular motions intact. Lids and lashes normal. Conjunctiva and sclera are non-icteric and not injected. Cornea within normal limits. Periorbital areas with no swelling, redness, or edema. ENT: clear pharynx without swelling Cardiovascular: Regular rate and rhythm. No pulse deficits. Respiratory: Lungs have equal breath sounds bilaterally, clear to auscultation. No increased work of breathing, no retractions or nasal flaring. Skin: Warm, dry MS/ Extremity: Pulses equal, no cyanosis. Neuro: Awake and alert, GCS 15 Vital Signs: 09:53 BP 136 / 84; Pulse 79; Resp 16; Temp 97.7(TE); Pulse Ox 98% on R/A; Weight 97.52 kg; ss Height 5 ft. 7 in. (170.18 cm); Pain 0/10; 09:53 Body Mass Index 33.67 (97.52 kg, 170.18 cm) ss MDM: 09:49 Patient medically screened. rn 10:02 Differential Diagnosis: Allergic Rhinitis. Data reviewed: vital signs, nurses notes, rn and as a result, I will discharge patient. Counseling: I had a detailed discussion with the patient and/or guardian regarding: the historical points, exam findings, and any diagnostic results supporting the discharge/admit diagnosis, the need for outpatient follow up, to return to the emergency department if symptoms worsen or persist or if there are any questions or concerns that arise at home. Special discussion: I discussed with the patient/guardian in detail that at this point there is no indication for admission to the hospital. It is understood, however, that if the symptoms persist or worsen the patient needs to return immediately for re-evaluation. ED course: No indication for emergent testing or imaging, symptoms consistent with allergic rhinitis, recommend daily allergy medication, and can return to work. No indication for COVID-19 testing given allergies more likely, afebrile, no oxygen requirement, and no dyspnea. return precautions given and understood.. Administered Medications: No medications were administered Disposition: 05/20/19 10:11 Discharged to Home. Impression: Cough, Other seasonal allergic rhinitis. - Condition is Stable. - Discharge Instructions: Allergies, Adult, Cough, Adult. - Work release form, Medication Reconciliation Form, Thank You Letter, Antibiotic Education, Prescription Opioid Use form. - Follow up: Private Physician; When: As needed; Reason: Recheck today's complaints, Re-evaluation by your physician. - Problem is new. - Symptoms are unchanged. - Notes: You currently do not require emergent testing or imaging as symptoms are more consistent with allergic rhinitis. If fever or shortness of breath begin, you need reevaluation and self-quarantine. Signatures: Armando Givens RN RN em Nieto, Roman, MD MD rn Smirch, Shelby, RN RN ss Corrections: (The following items were deleted from the chart) 10:21 10:11 05/20/2019 10:11 Discharged to Home. Impression: Cough; Other seasonal allergic em rhinitis. Condition is Stable. Forms are Medication Reconciliation Form, Thank You Letter, Antibiotic Education, Prescription Opioid Use. Follow up: Private Physician; When: As needed; Reason: Recheck today's complaints, Re-evaluation by your physician. Problem is new. Symptoms are unchanged. rn
--- NOTE | 2019-05-20 10:12 | ER ---
Nurse's Notes [facility] Name: Aidan Gagnon Age: 39 yrs Sex: Male : 1980 Arrival Date: 05/20/2019 Time: 09:45 Bed 6 Private MD: Diagnosis: Cough;Other seasonal allergic rhinitis Presentation: 05/19 09:53 Chief complaint: Patient states: Told to come to ED today for evaluation of dry cough ss since yesterday. Pt has no other complaints. Coronavirus screen: Patient denies fever greater than 100.4F, cough, shortness of breath, or difficulty breathing. Proceed with normal triage process. Ebola Screen: Patient denies exposure to infectious person. Patient denies travel to an Ebola-affected area in the 21 days before illness onset. Initial Sepsis Screen: Does the patient meet any 2 criteria? No. Patient's initial sepsis screen is negative. Does the patient have a suspected source of infection? No. Patient's initial sepsis screen is negative. Risk Assessment: Do you want to hurt yourself or someone else? Patient reports no desire to harm self or others. 09:53 Method Of Arrival: Ambulatory ss 09:53 Acuity: ELSY 5 ss Historical: - Allergies: 09:55 steroids; ss - Home Meds: 09:55 None [Active]; ss - PMHx: 09:55 Hypertension; ss - PSHx: 09:55 facial reconstruction; ss - Immunization history:: Adult Immunizations up to date. - Social history:: Smoking status: Patient denies any tobacco usage or history of. - Family history:: not pertinent. Screenin:00 Abuse screen: Denies threats or abuse. Nutritional screening: No deficits noted. em Tuberculosis screening: No symptoms or risk factors identified. Fall Risk None identified. Assessment: 10:00 General: Appears in no apparent distress. comfortable, Behavior is calm, cooperative, em Reports cough since yesterday at 3 Denies fever. Pain: Denies pain. Neuro: Level of Consciousness is awake, alert, obeys commands, Oriented to person, place, time, situation, Appropriate for age. Cardiovascular: Capillary refill < 3 seconds Patient's skin is warm and dry. Respiratory: Reports cough that is dry, hacking, Airway is patent Respiratory effort is even, unlabored, Respiratory pattern is regular, symmetrical, Breath sounds are clear bilaterally. Denies shortness of breath. GI: Patient currently denies nausea, vomiting. Derm: Skin is intact, is healthy with good turgor, Skin is pink, warm \T\ dry. Musculoskeletal: Capillary refill < 3 seconds, Range of motion: intact in all extremities. Vital Signs: 09:53 BP 136 / 84; Pulse 79; Resp 16; Temp 97.7(TE); Pulse Ox 98% on R/A; Weight 97.52 kg; Height 5 ft. 7 in. (170.18 cm); Pain 0/10; 09:53 Body Mass Index 33.67 (97.52 kg, 170.18 cm) ED Course: 09:45 Patient arrived in ED. am2 09:48 Armando Givens RN is Primary Nurse. em 09:49 Elder Hansen MD is Attending Physician. rn 09:55 Triage completed. ss 09:55 Arm band placed on right wrist. ss 10:00 Patient has correct armband on for positive identification. Call light in reach. em 10:00 No provider procedures requiring assistance completed. Patient did not have IV access em during this emergency room visit. Administered Medications: No medications were administered Outcome: 10:11 Discharge ordered by . rn 10:21 Discharged to home ambulatory. em 10:21 Condition: good 10:21 Discharge instructions given to patient, Instructed on discharge instructions, follow up and referral plans. Demonstrated understanding of instructions, follow-up care. 10:21 Patient left the ED. em Signatures: Armando Givens RN RN Elder Hansen MD MD rn Smirch, Shelby, RN RN Zainab Boone am2
[2019-05-20 10:30] VITALS: BP 136/84; TEMP 97.7; O2SAT 98
== END 2019-05-20 10:21 | disposition home or self-care (01) ==
LOC: ER 09:39
DX: J30.89 Other allergic rhinitis (principal); I10 Essential (primary) hypertension; Z88.8 Allergy status to other drugs, medicaments and biological substances
CPT/HCPCS: 99281

== ENCOUNTER 2019-07-26 02:49 | Emergency (ER) | payer BC ==
--- OUTSIDE RECORDS SUMMARY | 2019-07-26 02:50 | XMS REPORT ---
:1980 Author Organization [facility] t Address [address] [place] [address] Dr. Diaz. [address] [place] [address] Care Team Providers Name Role Phone DR DONITA VELASCO Attending Clinician Unavailable DR DONITA VELASCO Admitting Clinician Unavailable Problems This patient has no known problems. Allergies, Adverse Reactions, Alerts This patient has no known allergies or adverse reactions. Medications This patient has no known medications. Procedures This patient has no known procedures. Encounters Start End Encounter Admission Attending Care Care Encounter Source Date/Time Date/Time Type Type Clinicians Facility Department ID 2017-03-09 Inpatient C ARACELIS VELASCO MMLVLG PT [id number] [address] [place] [address] 10:30:00 [facility] Results This patient has no known results.
[2019-07-26] MEDS ORDERED: PROMETHAZINE INJ 25 MG/ML AMP ONE (03:19)
[2019-07-26] MEDS ORDERED: NA CHLORIDE 0.9% 1,000 ML ONE (03:19)
[2019-07-26 03:58] LABS: Absolute Lymphocytes (CBC) 2.2 K/uL (0.7-4.9); Basophils % 0.7 % (0-1.3); Hematocrit 49.4 % (39.6-49.0); Lymphocytes % 25.5 % (15.3-44.8); MPV 8.9 fL (7.6-11.3); RBC Red Blood Cell Count 5.53 M/uL (4.33-5.43)
[2019-07-26 04:16] LABS: Albumin 4.2 g/dL (3.4-5.0); Bilirubin Direct 0.2 mg/dL (0-0.2); Bilirubin Total 1.3 mg/dL (0.2-1.0); Potassium 3.6 mmol/L (3.5-5.1); Protein, Total 8.1 g/dL (6.4-8.2)
[2019-07-26 05:44] VITALS: TEMP 97.9
[2019-07-26 05:45] VITALS: BP 121/87; O2SAT 96
--- NOTE | 2019-07-26 15:43 | RAD REPORT ---
EXAM DESCRIPTION: CT HEAD WITHOUT CONTRAST CLINICAL HISTORY: DIZZINESS COMPARISON: None. TECHNIQUE: Axial unenhanced CT imaging of the brain. Reformatted coronal and sagittal images obtaine d. This examination was performed according to our departmental dose optimization program, which include s automated exposure control, adjustment of the mA and/or kV according to patient size and/or use of iterative reconstruction technique. FINDINGS: Normal ventricle size and contour. Dias-white matter differentiation is preserved. There is no hemorr abdon, mass, edema, or midline shift. No acute infarction or hyperdense vessel seen. The extra-axial f luid spaces over the cerebral convexities appears normal. There is a left retrocerebellar 3.5 x 2.3 x 4.4 cm fluid collection causing mass effect upon the left cerebellum compatible with an arachnoid cyst. The cerebellar hemispheres and vermis are otherwise no rmal. Fourth ventricle is midline. No cerebellar tonsillar ectopia. Normal sella contents. Intraorbital contents appear normal. Clear paranasal sinuses. Left mastoid air cells are clear. Right mastoid air cells are hypopneumatized and opacified. Skull base and calvarium are intact. Normal sca lp soft tissues. IMPRESSION: 1. No intracranial acute finding. 2. Left retrocerebellar arachnoid cyst. 3. Right mastoid effusion. Electronically signed by: Sonia Sales DO 07/26/2019 3:43 AM CDT Due to temporary technical issues with the PACS/Fluency reporting system, reports are being signed by the in house radiologist without review asa courtesy to ensure prompt reporting. The interpreting ra diologist is fully responsible for the content of the report.
--- NOTE | 2019-07-28 17:37 | ER ---
Nurse's Notes [facility] Name: Aidan Gagnon Age: 39 yrs Sex: Male : 1980 Arrival Date: 07/26/2019 Time: 02:52 Bed 7 Private MD: Diagnosis: Vertigo Presentation: 07/25 02:58 Chief complaint: Patient states: Dizziness that began yesterday morning, states worst lp1 when laying down and turns his head; Denies any headache, pain; States nausea when laying down. Coronavirus screen: Proceed with normal triage. Ebola Screen: No symptoms or risks identified at this time. Initial Sepsis Screen: Does the patient meet any 2 criteria? No. Patient's initial sepsis screen is negative. Does the patient have a suspected source of infection? No. Patient's initial sepsis screen is negative. Risk Assessment: Do you want to hurt yourself or someone else? Patient reports no desire to harm self or others. Onset of symptoms was July 25, 2019. 02:58 Method Of Arrival: Ambulatory lp1 02:58 Acuity: ELSY 3 lp1 Historical: - Allergies: 02:54 steroids; sg - PMHx: 02:54 Hypertension; sg - PSHx: 02:54 facial reconstruction; sg - Immunization history:: Adult Immunizations up to date. - Social history:: Smoking status: Patient denies any tobacco usage or history of. Screenin:01 Abuse screen: Denies threats or abuse. Denies injuries from another. Nutritional lp1 screening: No deficits noted. Tuberculosis screening: No symptoms or risk factors identified. Fall Risk None identified. Assessment: 03:00 General: Appears in no apparent distress. Behavior is calm, cooperative, appropriate lp1 for age. Pain: Denies pain. Neuro: Level of Consciousness is awake, alert, obeys commands, Oriented to person, place, time, situation, Gait is steady, Reports dizziness, on movement of head, worst when laying down. Cardiovascular: Patient's skin is warm and dry. Respiratory: Respiratory effort is even, unlabored. GI: Reports nausea. : No signs and/or symptoms were reported regarding the genitourinary system. EENT: No signs and/or symptoms were reported regarding the EENT system. Derm: Skin is pink, warm \T\ dry. Musculoskeletal: No deficits noted. 04:15 Reassessment: Patient and/or family updated on plan of care and expected duration. Pain lp1 level reassessed. Patient appears comfortable; States dizziness improved, states feeling drowsy. 05:40 Reassessment: Dc instructions given to patient. Pt agree with POC and to follow up with ao neuro. Vital Signs: 02:58 BP 141 / 108; Pulse 80; Resp 18; Temp 97.9(TE); Pulse Ox 99% on R/A; Weight 97.52 kg lp1 (R); Height 5 ft. 7 in. (170.18 cm); Pain 0/10; 04:15 BP 121 / 87; Pulse 67; Resp 16; Pulse Ox 96% on R/A; lp1 02:58 Body Mass Index 33.67 (97.52 kg, 170.18 cm) lp1 ED Course: 02:52 Patient arrived in ED. ds1 02:55 Arm band placed on. sg 02:58 Devi Chilel, RN is Primary Nurse. lp1 02:59 Ganesh Johnston MD is Attending Physician. mh7 03:00 Triage completed. lp1 03:01 Patient has correct armband on for positive identification. lp1 03:39 CT Head Brain wo Cont In Process Unspecified. EDMS 03:45 Inserted saline lock: 20 gauge in left antecubital area, using aseptic technique. Blood ds4 collected. 04:08 Basic Metabolic Panel Sent. ds4 04:08 LFT's Sent. ds4 05:09 Glenda Case MD is Referral Physician. 7 05:37 No provider procedures requiring assistance completed. IV discontinued, intact, ao bleeding controlled, No redness/swelling at site. Pressure dressing applied. Administered Medications: 03:47 Drug: Phenergan 12.5 mg Route: IVP; Site: left antecubital; lp1 04:15 Follow up: Response: Marked relief of symptoms lp1 03:47 Drug: NS 0.9% 1000 ml Route: IV; Rate: 1000 ml; Site: left antecubital; lp1 05:15 Follow up: IV Status: Completed infusion; IV Intake: 1000ml lp1 Intake: 05:15 IV: 1000ml; Total: 1000ml. lp1 Outcome: 05:09 Discharge ordered by . 7 05:38 Discharged to home ambulatory. ao 05:38 Condition: stable 05:38 Discharge instructions given to patient, Instructed on discharge instructions, follow up and referral plans. Demonstrated understanding of instructions, follow-up care, medications, Prescriptions given X 2. 05:38 Patient left the ED. ao Signatures: Dispatcher [employer] EDMS Carrington Welsh, RN Shari Britt ds1 Devi Chilel RN RN lp1 Adam Rogers ds4 Migue Huggins RN RN ao Holmes, Maurice, MD MD 7
--- NOTE | 2019-07-28 17:37 | EDPHYS ---
Physician Documentation [facility] Name: Aidan Gagnon Age: 39 yrs Sex: Male : 1980 Arrival Date: 07/26/2019 Time: 02:52 Bed 7 Private MD: ED Physician Ganesh Johnston HPI: 07/25 04:01 This 39 yrs old Male presents to ER via Ambulatory with complaints of mh7 Dizziness. 04:01 The patient presents with dizziness, sense of spinning. Onset: The symptoms/episode mh7 began/occurred yesterday. Context: occurred at home, occurred while the patient was lying down, just prior to the episode the patient experienced no apparent symptoms. Modifying factors: The symptoms are alleviated by holding head still, the symptoms are aggravated by movement of head, changing position. Associated signs and symptoms: Pertinent positives: headache, nausea, Pertinent negatives: abdominal pain, agitation, ataxia, blurred vision, chest pain, combativeness, confusion, diaphoresis, focal weakness, head injury, near-syncope, numbness, palpitations, , seizure, shortness of breath, syncope, tingling, vomiting. Severity of symptoms: At their worst the symptoms were moderate today, in the emergency department the symptoms are unchanged. The patient has not experienced similar symptoms in the past. Historical: - Allergies: 02:54 steroids; sg - PMHx: 02:54 Hypertension; sg - PSHx: 02:54 facial reconstruction; sg - Immunization history:: Adult Immunizations up to date. - Social history:: Smoking status: Patient denies any tobacco usage or history of. ROS: 04:01 Constitutional: Negative for fever, chills, and weight loss, Eyes: Negative for injury, mh7 pain, redness, and discharge, ENT: Negative for injury, pain, and discharge, Neck: Negative for injury, pain, and swelling, Cardiovascular: Negative for chest pain, palpitations, and edema, Respiratory: Negative for shortness of breath, cough, wheezing, and pleuritic chest pain, Abdomen/GI: Negative for abdominal pain, nausea, vomiting, diarrhea, and constipation, Back: Negative for injury and pain, : Negative for injury, bleeding, discharge, and swelling, MS/Extremity: Negative for injury and deformity, Skin: Negative for injury, rash, and discoloration, Psych: Negative for depression, anxiety, suicide ideation, homicidal ideation, and hallucinations, Allergy/Immunology: Negative for hives, rash, and allergies, Endocrine: Negative for neck swelling, polydipsia, polyuria, polyphagia, and marked weight changes, Hematologic/Lymphatic: Negative for swollen nodes, abnormal bleeding, and unusual bruising. Exam: 04:01 Constitutional: This is a well developed, well nourished patient who is awake, alert, mh7 and in no acute distress. Head/Face: Normocephalic, atraumatic. Eyes: Pupils equal round and reactive to light, extra-ocular motions intact. Lids and lashes normal. Conjunctiva and sclera are non-icteric and not injected. Cornea within normal limits. Periorbital areas with no swelling, redness, or edema. ENT: Nares patent. No nasal discharge, no septal abnormalities noted. Tympanic membranes are normal and external auditory canals are clear. Oropharynx with no redness, swelling, or masses, exudates, or evidence of obstruction, uvula midline. Mucous membranes moist. Neck: Trachea midline, no thyromegaly or masses palpated, and no cervical lymphadenopathy. Supple, full range of motion without nuchal rigidity, or vertebral point tenderness. No Meningismus. Chest/axilla: Normal chest wall appearance and motion. Nontender with no deformity. No lesions are appreciated. Cardiovascular: Regular rate and rhythm with a normal S1 and S2. No gallops, murmurs, or rubs. Normal PMI, no JVD. No pulse deficits. Respiratory: Lungs have equal breath sounds bilaterally, clear to auscultation and percussion. No rales, rhonchi or wheezes noted. No increased work of breathing, no retractions or nasal flaring. Abdomen/GI: Soft, non-tender, with normal bowel sounds. No distension or tympany. No guarding or rebound. No evidence of tenderness throughout. Back: No spinal tenderness. No costovertebral tenderness. Full range of motion. Skin: Warm, dry with normal turgor. Normal color with no rashes, no lesions, and no evidence of cellulitis. MS/ Extremity: Pulses equal, no cyanosis. Neurovascular intact. Full, normal range of motion. Neuro: Awake and alert, GCS 15, oriented to person, place, time, and situation. Cranial nerves II-XII grossly intact. Motor strength 5/5 in all extremities. Sensory grossly intact. Cerebellar exam normal. Normal gait. Psych: Awake, alert, with orientation to person, place and time. Behavior, mood, and affect are within normal limits. 04:06 ECG was reviewed by the Attending Physician. [facility] Vital Signs: 02:58 BP 141 / 108; Pulse 80; Resp 18; Temp 97.9(TE); Pulse Ox 99% on R/A; Weight 97.52 kg lp1 (R); Height 5 ft. 7 in. (170.18 cm); Pain 0/10; 04:15 BP 121 / 87; Pulse 67; Resp 16; Pulse Ox 96% on R/A; lp1 02:58 Body Mass Index 33.67 (97.52 kg, 170.18 cm) lp1 MDM: 03:09 Patient medically screened. [facility] 05:07 Differential diagnosis: hypovolemia, idiopathic dizziness, near-syncope, syncope, [facility] vertigo. Differential diagnosis: cardiac arrhythmia. Data reviewed: vital signs, nurses notes. Data reviewed: lab test result(s), CBC, electrolytes, urinalysis. Data interpreted: property assessment monitor: rate is 67 beats/min, rhythm is normal sinus rhythm, regular, Interpretation: normal rate, normal rhythm, Pulse oximetry: on room air is 96 %. Interpretation: normal. Counseling: I had a detailed discussion with the patient and/or guardian regarding: the historical points, exam findings, and any diagnostic results supporting the discharge/admit diagnosis, lab results, radiology results, the need for outpatient follow up, to return to the emergency department if symptoms worsen or persist or if there are any questions or concerns that arise at home. 05:25 Response to treatment: the patient's symptoms have resolved after treatment, the [facility] patient's blood pressure is in an acceptable range, mental status has returned to baseline, the patient no longer shows bradycardia, the patient is not short of breath, the patient is not tachycardic, the patient's pain is gone, the patient's temperature has normalized. 07/25 03:09 Order name: CBC with Diff; Complete Time: 04:09 [facility] 07/25 03:09 Order name: Basic Metabolic Panel; Complete Time: 04:18 [facility] 07/25 03:09 Order name: LFT's; Complete Time: 04:18 [facility] 07/25 03:09 Order name: CT Head Brain wo Cont [facility] 07/25 03:09 Order name: Saline Lock; Complete Time: 04:08 [facility] 07/25 03:09 Order name: EKG - Nurse/Tech; Complete Time: 04:08 EC:06 Rate is 73 beats/min. Rhythm is regular. QRS [place] is Normal. ID interval is normal. QRS mh7 interval is normal. QT interval is normal. No Q waves. T waves are Inverted in leads III, aVF. No ST changes noted. Clinical impression: NSR w/ Non-specific ST/T Changes. Administered Medications: 03:47 Drug: Phenergan 12.5 mg Route: IVP; Site: left antecubital; 1 04:15 Follow up: Response: Marked relief of symptoms [facility] 03:47 Drug: NS 0.9% 1000 ml Route: IV; Rate: 1000 ml; Site: left antecubital; lp1 05:15 Follow up: IV Status: Completed infusion; IV Intake: 1000ml [facility] Disposition: 07/26/19 05:09 Discharged to Home. Impression: Vertigo. - Condition is Stable. - Discharge Instructions: Vertigo, [id number]. - Prescriptions for Meclizine 25 mg Oral Tablet - take 1 tablet by ORAL route every 8 hours As needed; 30 tablet. - Medication Reconciliation Form, Thank You Letter, Antibiotic Education, Prescription Opioid Use form. - Follow up: Private Physician; When: 1 - 2 days; Reason: Worsening of condition, Re-evaluation by your physician. Follow up: Glenda Case MD; When: 1 - 2 days; Reason: Worsening of condition, Recheck today's complaints. - Problem is new. - Symptoms are resolved. Signatures: Dispatcher [employer] EDCarrington Zafar RN RN sg Pena, Laura, RN RN 1 Migue Huggins RN RN ao Holmes, Maurice, MD MD 7 Corrections: (The following items were deleted from the chart) 05:38 05:09 07/26/2019 05:09 Discharged to Home. Impression: Vertigo. Condition is Stable. ao Forms are Medication Reconciliation Form, Thank You Letter, Antibiotic Education, Prescription Opioid Use. Follow up: Private Physician; When: 1 - 2 days; Reason: Worsening of condition, Re-evaluation by your physician. Follow up: Glenda Case; When: 1 - 2 days; Reason: Worsening of condition, Recheck today's complaints. Problem is new. Symptoms are resolved. mh7
== END 2019-07-26 05:38 | disposition home or self-care (01) ==
LOC: ER 02:49
DX: R42 Dizziness and giddiness (principal); I10 Essential (primary) hypertension; Z88.8 Allergy status to other drugs, medicaments and biological substances
CPT/HCPCS: 96361; 93005 ×2; 85025; 80048; 36415; 80076; 70450; 96374; 99284; J2550; J7030

== ENCOUNTER 2020-01-13 14:56 | Emergency (ER) | payer BC ==
--- OUTSIDE RECORDS SUMMARY | 2020-01-13 14:58 | XMS REPORT | Continuity of Care Document ---
:1980 Author Organization [facility] t Address [address] [place] [address] Dr. Diaz. [address] [place] [address] Care Team Providers Name Role Phone DR [...] 2017-03-09 Inpatient C ARACELIS VELASCO MMLVLG PT [id number] [address] [place] [address] 10:30:00 [facility] Results This patient has no known results.
--- NOTE | 2020-01-13 15:53 | EDPHYS ---
Physician Documentation [facility] Name: Aidan Gagnon Age: 39 yrs Sex: Male : 1980 Arrival Date: 01/13/2020 Time: 14:57 Bed 17 Private MD: ED Physician Hal Null HPI: 01/12 15:32 This 39 yrs old Male presents to ER via Ambulatory with complaints of Nose jmm Bleed. 15:32 The patient presents with a nose bleed, that is apparently anterior, occurred while jmm picking nose. Onset: The symptoms/episode began/occurred acutely, today. Modifying factors: The symptoms are alleviated by nothing. the symptoms are aggravated by. Associated signs and symptoms: Loss of consciousness: the patient experienced no loss of consciousness, Pertinent negatives: blurred vision, chest pain. This is a 39 year old male with a history of htn that presents to the ED with complaints of left notril bleeding. Patient states bleeding has been on and off for approx 2 years. Most recent episode earlier today. . Historical: - Allergies: 15:28 steroids; ss - PMHx: 15:28 Hypertension; ss - PSHx: 15:28 facial reconstruction; ss - Immunization history:: Flu vaccine is not up to date. - Social history:: Smoking status: Patient denies any tobacco usage or history of. ROS: 15:32 Constitutional: Negative for fever, chills, and weight loss. jmm 15:32 Cardiovascular: Negative for chest pain, palpitations, and edema, Respiratory: Negative for shortness of breath, cough, wheezing, and pleuritic chest pain, Neuro: Negative for headache, weakness, numbness, tingling, and seizure. 15:32 ENT: Positive for nose bleed. 15:32 All other systems are negative. Exam: 15:32 Constitutional: This is a well developed, well nourished patient who is awake, alert, jmm and in no acute distress. Head/Face: atraumatic. Eyes: EOMI, no conjunctival erythema appreciated 15:32 Neck: Trachea midline, Supple Chest/axilla: Normal chest wall appearance and motion. Cardiovascular: Regular rate and rhythm. No edema appreciated Respiratory: Normal respirations, no respiratory distress appreciated Abdomen/GI: Non distended, soft Back: Normal ROM Skin: General appearance color normal MS/ Extremity: Moves all extremities, no obvious deformities appreciated, no edema noted to the lower extremities Neuro: Awake and alert, normal gait Psych: Behavior is normal, Mood is normal, Patient is cooperative and pleasant 15:32 ENT: Nose: Nasal mucosa: Dried blood. erythematous, bleeding, is seen from the left nare, and is minimal, no septal hematoma is appreciated, Examination of the other nostril shows no obvious abnormality, Posterior pharynx: blood noted. Vital Signs: 15:27 BP 152 / 98; Pulse 86; Resp 17; Temp 98.3; Pulse Ox 99% ; Height 5 ft. 7 in. (170.18 ss cm); Pain 0/10; MDM: 15:32 Patient medically screened. [facility] 15:51 Data reviewed: vital signs, nurses notes. Counseling: I had a detailed discussion with sudeep the patient and/or guardian regarding: the historical points, exam findings, and any diagnostic results supporting the discharge/admit diagnosis, the need for outpatient follow up, to return to the emergency department if symptoms worsen or persist or if there are any questions or concerns that arise at home. Refusal of service: The patient/guardian displays adequate decision making capability and despite a detailed discussion of alternatives, benefits, risks, and consequences refuses: rhino rocket. ED course: Patient given strict return precautions. Patient understood and agrees with the plan of care. . Administered Medications: 15:41 Drug: Valentin-Synephrine [place] 0.5 % 2 sprays {Note: by provider FNP. Camryn} Route: tw2 Intranasal; Site: both nares; Disposition: 01/13 08:39 Co-signature as Attending Physician, Hal Null MD I agree with the assessment and kdr plan of care. Disposition: 01/13/20 15:52 Discharged to Home. Impression: Epistaxis. - Condition is Stable. - Discharge Instructions: Nosebleed, Adult. - Medication Reconciliation Form, Thank You Letter, Antibiotic Education, Prescription Opioid Use, Work release form form. - Follow up: Glenda Case MD; When: 2 - 3 days; Reason: Recheck today's complaints, Continuance of care, Re-evaluation by your physician. - Notes: Please use sterile saline daily in each nostril. If a nose bleed develops you may attempt stop it by spraying two sprays of afrin otc nasal spray and applying pressure for 15 minutes, if it does not resolve please return to the emergencey department for reevaluation. Signatures: Hal Null MD MD kdr Mickail, Joel, PA PA jmm Smirch, Shelby, ROBINSON RN ss Leonela Loya RN RN tw2 Corrections: (The following items were deleted from the chart) 01/12 15:59 15:52 01/13/2020 15:52 Discharged to Home. Impression: Epistaxis. Condition is Stable. tw2 Forms are Work release form, Medication Reconciliation Form, Thank You Letter, Antibiotic Education, Prescription Opioid Use. Follow up: Glenda Case; When: 2 - 3 days; Reason: Recheck today's complaints, Continuance of care, Re-evaluation by your physician. sudeep
--- NOTE | 2020-01-13 15:53 | ER ---
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 No pain or trauma. ss Coronavirus screen: Client denies travel out of the [place] in the last 14 days. At this time, the client does not indicate any symptoms associated with coronavirus-19. Ebola Screen: Patient denies travel to an Ebola-affected area in the 21 days before illness onset. Initial Sepsis Screen: Does the patient meet any 2 criteria? No. Patient's initial sepsis screen is negative. Does the patient have a suspected source of infection? No. Patient's initial sepsis screen is negative. Risk Assessment: Do you want to hurt yourself or someone else? Patient reports no desire to harm self or others. Onset of symptoms was January 13, 2020. 15:27 Method Of Arrival: Ambulatory 15:27 Acuity: ELSY 3 ss Historical: - Allergies: 15:28 steroids; ss - PMHx: 15:28 Hypertension; ss - PSHx: 15:28 facial reconstruction; ss - Immunization history:: Flu vaccine is not up to date. - Social history:: Smoking status: Patient denies any tobacco usage or history of. Screenin:42 Abuse screen: Denies threats or abuse. Nutritional screening: No deficits noted. tw2 Tuberculosis screening: No symptoms or risk factors identified. Fall Risk None identified. Assessment: 15:30 General: Appears in no apparent distress. well groomed, Behavior is calm, cooperative, tw2 appropriate for age. Pain: Denies pain. Neuro: Level of Consciousness is awake, alert, obeys commands, Oriented to person, place, time, situation. Cardiovascular: Heart tones S1 S2 Patient's skin is warm and dry. Respiratory: Airway is patent Respiratory effort is even, unlabored, Respiratory pattern is regular, symmetrical, Breath sounds are clear bilaterally. GI: No signs and/or symptoms were reported involving the gastrointestinal system. Abdomen is flat. : No signs and/or symptoms were reported regarding the genitourinary system. EENT: Reports nasal congestion and nose bleed about an hour ago. 15:59 Reassessment: Patient appears in no apparent distress at this time. No changes from tw2 previously documented assessment. Patient and/or family updated on plan of care and expected duration. Pain level reassessed. Patient is alert, oriented x 3, equal unlabored respirations, skin warm/dry/pink. Patient states symptoms have improved. Vital Signs: 15:27 BP 152 / 98; Pulse 86; Resp 17; Temp 98.3; Pulse Ox 99% ; Height 5 ft. 7 in. (170.18 ss cm); Pain 0/10; ED Course: 14:57 Patient arrived in ED. ag5 15:28 Triage completed. ss 15:28 Arm band placed on Patient placed in an exam room, on a stretcher. ss 15:30 Bed in low position. Call light in reach. Pulse ox on. NIBP on. tw2 15:31 Jose Luis Dempsey PA is PHCP. [facility] 15:31 Hal Null MD is Attending Physician. [facility] 15:33 Leonela Loya, RN is Primary Nurse. tw2 15:52 Glenda Case MD is Referral Physician. [facility] 15:59 No provider procedures requiring assistance completed. Patient did not have IV access tw2 during this emergency room visit. Administered Medications: 15:41 Drug: Valentin-Synephrine [place] 0.5 % 2 sprays {Note: by provider ARMEN Cowan.} Route: tw2 Intranasal; Site: both nares; Outcome: 15:52 Discharge ordered by MD. [facility] 15:59 Discharged to home ambulatory. tw2 15:59 Condition: stable 15:59 Discharge instructions given to patient, Instructed on discharge instructions, follow up and referral plans. Demonstrated understanding of instructions, follow-up care. 15:59 Patient left the ED. tw2 Signatures: Jose Luis Dempsey PA PA jmm Smirch, Shelby, RN RN Leonela Loya RN RN 2 Daisy Grant ag5 Corrections: (The following items were deleted from the chart) 15:43 15:30 EENT: Reports nasal congestion and nose bleed since. tw2 tw2
[2020-01-13] MEDS ORDERED: PHENYLEPHRINE 0.5% NOSE 15ML NAS ONE (15:54)
[2020-01-13 23:12] VITALS: BP 152/98; TEMP 98.3; O2SAT 99
== END 2020-01-13 15:59 | disposition home or self-care (01) ==
LOC: ER 14:56
DX: R04.0 Epistaxis (principal); I10 Essential (primary) hypertension; Z88.8 Allergy status to other drugs, medicaments and biological substances
CPT/HCPCS: 99283

== ENCOUNTER 2020-06-12 12:07 | Emergency (ER) | payer BC ==
--- OUTSIDE RECORDS SUMMARY | 2020-06-12 12:10 | XMS REPORT | Continuity of Care Document ---
:1980 Author Organization [facility] t Address [address] [place] [address] Dr. [address]. [address] [place] [address] Care Team Providers Name Role Phone DR [...] 2017-03-09 Inpatient C ARACELIS VELASCO [facility] PT [id number] [address] [place] [address] 10:30:00 [facility] Results This patient has no known results.
--- NOTE | 2020-06-12 13:12 | EDPHYS ---
Physician Documentation [facility] Name: Aidan Gagnon Age: 40 yrs Sex: Male : 1980 Arrival Date: 06/12/2020 Time: 12:10 Bed 12 Private MD: DIPTI Physician Holland Hidalgo HPI: 06/12 13:11 This 40 yrs old Male presents to ER via Ambulatory with complaints of Ear Pain.pm1 13:11 The patient presents with pain. The complaints affect the right ear. Onset: The pm1 symptoms/episode began/occurred 2 week(s) ago. Modifying factors: The symptoms are alleviated by nothing, the symptoms are aggravated by nothing. Associated signs and symptoms: Pertinent positives: decreased hearing to right ear, Pertinent negatives: cough, fever, sinus trouble, sore throat, drainage or discharge. Severity of symptoms: in the emergency department the symptoms are worse. multiple ear infections as a young child. The patient has not recently seen a physician. Patient with right ear pain for the past two weeks. Recently started having decreased hearing to the same ear so presented to the ER. Historical: - Allergies: 12:20 steroids; ca1 - PMHx: 12:20 Hypertension; ca1 - PSHx: 12:20 facial reconstruction; ear surgery; ca1 - Immunization history:: Flu vaccine is not up to date. - Social history:: Smoking status: Patient denies any tobacco usage or history of. ROS: 13:11 Constitutional: Negative for fever, chills, and weight loss. pm1 13:11 Cardiovascular: Negative for chest pain, palpitations, and edema, Respiratory: Negative for shortness of breath, cough, wheezing, and pleuritic chest pain, Abdomen/GI: Negative for abdominal pain, nausea, vomiting, diarrhea, and constipation, Skin: Negative for injury, rash, and discoloration, Neuro: Negative for headache, weakness, numbness, tingling, and seizure. 13:11 ENT: Positive for ear pain, Negative for injury or acute deformity, drainage from ear(s), sore throat. Exam: 13:11 Constitutional: This is a well developed, well nourished patient who is awake, alert, pm1 and in no acute distress. Head/Face: Normocephalic, atraumatic. 13:11 Skin: Warm, dry with normal turgor. Normal color with no rashes, no lesions, and no evidence of cellulitis. MS/ Extremity: Pulses equal, no cyanosis. Neurovascular intact. Full, normal range of motion. 13:11 ENT: External ear(s): are unremarkable, Ear canal(s): are normal, TM's: bulging, on the right, erythema, that is mild, on the right, Examination of the other ear shows no obvious abnormality. 13:11 Cardiovascular: Exam negative for acute changes, Rate: normal, Rhythm: regular, Pulses: no pulse deficits are appreciated. 13:11 Respiratory: Exam negative for acute changes, respiratory distress, shortness of breath. 13:11 Neuro: Exam negative for acute changes, Orientation: is normal, Mentation: is normal, Motor: is normal, moves all fours, Gait: is steady, at a normal pace, without difficulty. Vital Signs: 12:19 BP 149 / 88; Pulse 62; Resp 16 S; Temp 97.6(TE); Pulse Ox 100% on R/A; Weight 100.7 kg ca1 (R); Height 5 ft. 6 in. (167.64 cm) (R); Pain 2/10; 13:06 BP 136 / 79; Pulse 65; Resp 16 S; Pulse Ox 100% on R/A; ca1 12:19 Body Mass Index 35.83 (100.70 kg, 167.64 cm) ca1 MDM: 13:06 Patient medically screened. wiley 13:11 Data reviewed: vital signs. Data interpreted: Pulse oximetry: on room air is 100 %. pm1 Interpretation: normal. Counseling: I had a detailed discussion with the patient and/or guardian regarding: the historical points, exam findings, and any diagnostic results supporting the discharge/admit diagnosis, the need for outpatient follow up, an ENT specialist, a family practitioner, to return to the emergency department if symptoms worsen or persist or if there are any questions or concerns that arise at home. Administered Medications: No medications were administered Disposition: 06/13 08:30 Co-signature as Attending Physician, Holland Hidalgo MD I agree with the assessment and wiley plan of care. Disposition: 06/12/20 13:12 Discharged to Home. Impression: Otitis media, unspecified, right ear. - Condition is Stable. - Discharge Instructions: Otitis Media, Adult. - Prescriptions for Augmentin 875- 125 mg Oral Tablet - take 1 tablet by ORAL route every 12 hours for 10 days; 20 tablet. - Medication Reconciliation Form, Thank You Letter, Antibiotic Education, Prescription Opioid Use, Work release form form. - Follow up: Emergency Department; When: As needed; Reason: Worsening of condition. Follow up: Private Physician; When: 2 - 3 days; Reason: Recheck today's complaints, Continuance of care, Re-evaluation by your physician. - Problem is new. - Symptoms have improved. Signatures: Holland Hidalgo MD MD cha Marinas, Patrick WOOL CLASSER WOOL CLASSER pm1 Lisa Blancas RN RN ca1 Corrections: (The following items were deleted from the chart) 06/12 13:27 13:12 06/12/2020 13:12 Discharged to Home. Impression: Otitis media, unspecified, right ca1 ear. Condition is Stable. Forms are Medication Reconciliation Form, Thank You Letter, Antibiotic Education, Prescription Opioid Use. Follow up: Emergency Department; When: As needed; Reason: Worsening of condition. Follow up: Private Physician; When: 2 - 3 days; Reason: Recheck today's complaints, Continuance of care, Re-evaluation by your physician. Problem is new. Symptoms have improved. pm1
--- NOTE | 2020-06-12 13:12 | ER ---
Nurse's Notes [facility] Name: Aidan Gagnon Age: 40 yrs Sex: Male : 1980 Arrival Date: 06/12/2020 Time: 12:10 Bed 12 Private MD: Diagnosis: Otitis media, unspecified, right ear Presentation: 06/12 12:19 Chief complaint: Patient states: R ear pain x 2 weeks. Drainage intermittent. ca1 Coronavirus screen: Client denies travel out of the [place] in the last 14 days. At this time, the client does not indicate any symptoms associated with coronavirus-19. Ebola Screen: Patient negative for fever greater than or equal to 101.5 degrees Fahrenheit, and additional compatible Ebola Virus Disease symptoms Patient denies exposure to infectious person. Patient denies travel to an Ebola-affected area in the 21 days before illness onset. No symptoms or risks identified at this time. Initial Sepsis Screen: Does the patient meet any 2 criteria? No. Patient's initial sepsis screen is negative. Does the patient have a suspected source of infection? No. Patient's initial sepsis screen is negative. Risk Assessment: Do you want to hurt yourself or someone else? Patient reports no desire to harm self or others. Onset of symptoms was June 12, 2020. 12:19 Method Of Arrival: Ambulatory ca1 12:19 Acuity: ELSY 4 ca1 Historical: - Allergies: 12:20 steroids; ca1 - PMHx: 12:20 Hypertension; ca1 - PSHx: 12:20 facial reconstruction; ear surgery; ca1 - Immunization history:: Flu vaccine is not up to date. - Social history:: Smoking status: Patient denies any tobacco usage or history of. Screenin:06 Abuse screen: Denies threats or abuse. Denies injuries from another. Nutritional ca1 screening: No deficits noted. Tuberculosis screening: No symptoms or risk factors identified. Fall Risk None identified. Assessment: 13:06 General: Appears in no apparent distress. comfortable, Behavior is calm, cooperative, ca1 appropriate for age. Pain: Complains of pain in right ear Pain currently is 3 out of 10 on a pain scale. Neuro: Level of Consciousness is awake, alert, obeys commands, Oriented to person, place, time, situation. EENT: Ear canal clear on left ear and right ear. Derm: Skin is intact, is healthy with good turgor, Skin is pink, warm \T\ dry. Musculoskeletal: Circulation, motion, and sensation intact. Capillary refill < 3 seconds. Vital Signs: 12:19 BP 149 / 88; Pulse 62; Resp 16 S; Temp 97.6(TE); Pulse Ox 100% on R/A; Weight 100.7 kg ca1 (R); Height 5 ft. 6 in. (167.64 cm) (R); Pain 2/10; 13:06 BP 136 / 79; Pulse 65; Resp 16 S; Pulse Ox 100% on R/A; ca1 12:19 Body Mass Index 35.83 (100.70 kg, 167.64 cm) ca1 ED Course: 12:10 Patient arrived in ED. as 12:20 Triage completed. ca1 12:20 Arm band placed on right wrist. ca1 13:05 Heath Perla NP is PHCP. pm1 13:06 Holland Hidalgo MD is Attending Physician. pm1 13:06 Lisa Blancas RN is Primary Nurse. ca1 13:06 Patient has correct armband on for positive identification. Call light in reach. Pulse ca1 ox on. NIBP on. 13:08 No provider procedures requiring assistance completed. Patient did not have IV access ca1 during this emergency room visit. Administered Medications: No medications were administered Outcome: 13:12 Discharge ordered by . pm1 13:26 Discharged to home ambulatory. ca1 13:26 Condition: stable 13:26 Discharge instructions given to patient, Instructed on discharge instructions, follow up and referral plans. medication usage, Demonstrated understanding of instructions, follow-up care, medications, Prescriptions given X 1. 13:27 Patient left the ED. ca1 Signatures: Miley Schreiber as Heath Perla NP RESORT HOST pm1 Lisa Blancas, ROBINSON RN ca1
[2020-06-12 13:33] VITALS: TEMP 97.6; O2SAT 100
[2020-06-12 13:34] VITALS: BP 136/79
== END 2020-06-12 13:27 | disposition home or self-care (01) ==
LOC: ER 12:07
DX: H66.91 Otitis media, unspecified, right ear (principal); I10 Essential (primary) hypertension
CPT/HCPCS: 99283

== ENCOUNTER 2023-06-12 20:43 | Emergency (ER) | payer BC, OTHER ==
--- OUTSIDE RECORDS SUMMARY | 2023-06-12 20:47 | XMS REPORT | Continuity of Care Document ---
Author Name Unknown Address [address] [facility] [address] th[address] Address [address] [facility]. [address] [place] [address] Care Team Providers Care Field Cashier Name Role Phone DR DONITA VELASCO Attending Clinician Unavailable JO RIVAS Attending Clinician Unavailable DR DONITA VELASCO Admitting Clinician Unavailable Encounters Start Date/Time End Date/Time Encounter Type Admission Type Attending Clinicians Care Facility Care Department Encounter ID Source 2017-03-09 10:30:00 Inpatient C DONITA VELASCO [facility] PT [id number] [facility] 2022-03-10 15:15:00 2022-03-10 15:15:00 Outpatient JO RIVAS [id number] Catina Plasencia 2022-03-08 15:15:00 2022-03-08 15:15:00 Outpatient JO RIVAS [id number] [facility] Plasencia
[2023-06-12 21:45] LABS: Absolute Basophils 0.1 K/uL (0-0.5); Absolute Eosinophils 0.7 K/uL (0-0.5); Absolute Lymphocytes (CBC) 2.2 K/uL (0.7-4.9); Absolute Monocytes 0.6 K/uL (0.1-1.3); Absolute Neutrophil 4.7 K/uL (1.8-8.0); Hematocrit 45.8 % (39.6-49.0); Hemoglobin 15.9 g/dL (13.6-17.9); Lymphocytes % 26.4 % (15.3-44.8); MCH 30.9 pg (27.0-35.0); MCHC 34.7 g/dL (32.0-36.0); MCV 89.2 fL (80-100); MPV 8.7 fL (7.6-11.3); Neutrophils % 56.6 % (41.7-73.7); Nucleated Red Blood Cells % 0.1 % (0-0); Platelets 176 thou/uL (152-406); RBC Red Blood Cell Count 5.14 M/uL (4.33-5.43); Red Cell Distribution Width 13.2 % (12.1-15.2)
[2023-06-12 21:49] LABS: Albumin 3.9 g/dL (3.4-5.0); Albumin/Globulin Ratio 1.1 (1.1-1.8); Anion Gap 8.5 mEq/L (5.0-15.0); Bilirubin Total 1.5 mg/dL (0.2-1.0); Globulin 3.6 g/dL (2.3-3.5); Potassium 3.5 mEq/L (3.5-5.1); Protein, Total 7.5 g/dL (6.4-8.2)
--- NOTE | 2023-06-12 22:06 | RAD REPORT ---
EXAM DESCRIPTION: CT - Stone Protocol - 06/12/2023 9:24 pm CLINICAL HISTORY: ABD PAIN COMPARISON: Abdomen Pelvis W Contrast dated 06/27/2018 TECHNIQUE: Thin cut axial CT imaging of the abdomen and pelvis was performed without IV contrast. Mu ltiplanar reformats were generated and reviewed. All CT scans are performed using dose optimization technique as appropriate and may include automated exposure control or mA/KV adjustment according to patient size. FINDINGS: No suspicious findings in the lung bases. The liver shows diffuse parenchymal hypoattenuation suggesting steatosis. Spleen, adrenal glands, and pancreas show no suspicious findings. Gallbladder and biliary tree are also without suspicious findi ng. Symmetric renal contour, without suspicious parenchymal findings within limits of noncontrast techniq ue. No evidence of radiopaque calculi or hydroureteronephrosis. No dilated bowel loops or bowel wall thickening. No free air, free fluid or inflammatory stranding. N o hernia, mass or bulky lymphadenopathy. The urinary bladder is without significant finding. No suspicious bony findings. IMPRESSION: No acute intra-abdominal process. Diffuse parenchymal hypoattenuation of the liver suggesting steatosis.
--- NOTE | 2023-06-12 22:39 | ER ---
Nurse's Notes [facility] Name: Aidan Gagnon Age: 43 yrs Sex: Male : 1980 Arrival Date: 06/12/2023 Time: 20:43 Bed 5 Private MD: Diagnosis: Lower abdominal pain, unspecified Presentation: 06/11 21:05 Chief complaint: Patient states: abdominal pain off and on x1 month with worsening pain as6 today. Coronavirus screen: At this time, the client does not indicate any symptoms associated with coronavirus-19. Ebola Screen: No symptoms or risks identified at this time. Initial Sepsis Screen: Does the patient meet any 2 criteria? No. Patient's initial sepsis screen is negative. Does the patient have a suspected source of infection? No. Patient's initial sepsis screen is negative. Risk Assessment: Do you want to hurt yourself or someone else? Patient reports no desire to harm self or others. Onset of symptoms was June 12, 2023. 21:05 Acuity: ELSY 3 as6 21:05 Method Of Arrival: Ambulatory as6 Historical: - Allergies: 21:04 steroids; as6 - PMHx: 21:04 Hypertension; as6 - Immunization history:: Adult Immunizations up to date. - Infectious Disease History:: Denies. - Social history:: Smoking status: Patient denies any tobacco usage or history of. Screenin:10 [facility] ED Fall Risk Assessment (Adult) History of falling in the last 3 months, jj7 including since admission No falls in past 3 months (0 pts) Confusion or Disorientation No (0 pts) Intoxicated or Sedated No (0 pts) Impaired Gait No (0 pts) Mobility Assist Device Used No (0 pt) Altered Elimination No (0 pt) Score/Fall Risk Level 0 - 2 = Low Risk Oriented to surroundings, Maintained a safe environment, Educated pt \T\ family on fall prevention, incl call for assistance when getting out of bed. Abuse screen: Denies threats or abuse. Nutritional screening: No deficits noted. Tuberculosis screening: No symptoms or risk factors identified. Assessment: 21:10 General: Appears in no apparent distress. comfortable, Behavior is calm, cooperative, jj7 appropriate for age. Pain: Complains of pain in right upper quadrant. GI: Abdomen is flat, non-distended, Abd is soft and non tender X 4 quads. Reports upper abdominal pain, COMES AND GOES. NO REALLY IN PAIN. Vital Signs: 21:03 BP 134 / 89; Pulse 72; Resp 18 S; Temp 97.2(TE); Pulse Ox 97% on R/A; Weight 104.78 kg as6 (R); Height 5 ft. 9 in. (R); Pain 3/10; 22:00 BP 117 / 70; Pulse 73; Resp 16; Pulse Ox 96% ; jj7 22:40 BP 109 / 80; Pulse 69; Resp 20; Temp 97.9; Pulse Ox 97% ; jj7 21:03 Body Mass Index 34.11 (104.78 kg, 175.26 cm) as6 21:03 Pain Scale: Adult as6 ED Course: 20:47 Patient arrived in ED. jj6 20:52 Diana [facility]ites [facility]C [facility] kb 20:52 Anthony Leblanc MD is Attending Physician. kb 21:04 Arm band placed on. as6 21:05 Triage completed. as6 21:10 Patient has correct armband on for positive identification. Bed in low position. Call jj7 light in reach. Adult w/ patient. Provided Education on: HIV Consent, USE OF CALL WIGGINS. 21:10 Inserted saline lock: 20 gauge in right antecubital area, using aseptic technique. jj7 Blood collected. 21:21 CBC with Diff Sent. jj7 21:21 CMP Sent. jj7 21:21 Lipase Sent. jj7 21:26 CT Stone Protocol In Process Unspecified. EDMS 22:51 No provider procedures requiring assistance completed. IV discontinued, intact, jj7 bleeding controlled, No redness/swelling at site. Pressure dressing applied. Administered Medications: No medications were administered Medication: 21:10 VIS not applicable for this client. jj7 Outcome: 22:38 Discharge ordered by . kb 22:51 Discharged to home ambulatory, with significant other, jj7 22:51 Condition: good 22:51 Discharge instructions given to patient, Instructed on discharge instructions, follow up and referral plans. Demonstrated understanding of instructions, follow-up care, 22:52 Patient left the ED. jj7 Signatures: Dispatcher [employer] EDMS Diana Benites FNP-C FNP-Ckb Jeffries, Jennifer jj6 Matty Bellamy, RN RN as6 Jarocho Snell, RN RN jj7
--- NOTE | 2023-06-12 22:39 | EDPHYS ---
Physician Documentation [facility] Name: Aidan Gagnon Age: 43 yrs Sex: Male : 1980 Arrival Date: 06/12/2023 Time: 20:43 Bed 5 Private MD: ED Physician Anthony Leblanc HPI: 06/11 20:58 This 43 yrs old Male presents to ER via Unassigned with complaints of kb Abdominal Pain. 20:58 Patient is a 43-year-old male who presents for right lower quadrant pain that started 1 kb month ago and got worse today. Denies nausea, vomiting, diarrhea, fever, urinary symptoms. States he was seen by GI today and had tests ordered but since the pain got worse he wanted and came in for evaluation. Historical: - Allergies: 21:04 steroids; as6 - PMHx: 21:04 Hypertension; as6 - Immunization history:: Adult Immunizations up to date. - Infectious Disease History:: Denies. - Social history:: Smoking status: Patient denies any tobacco usage or history of. ROS: 20:58 Constitutional: As per HPI kb Exam: 20:58 Constitutional: This is a well developed, well nourished patient who is awake, alert, kb and in no acute distress. Head/Face: Normocephalic, atraumatic. ENT: Moist Mucous membranes Cardiovascular: Regular rate Respiratory: Respirations even and unlabored. No increased work of breathing. Talking in full sentences Skin: Warm, dry with normal turgor. Normal color. MS/ Extremity: Pulses equal, no cyanosis. Neurovascular intact. Full, normal range of motion. Neuro: Awake and alert, GCS 15, oriented to person, place, time, and situation. Moves all extremities. Normal gait. 20:58 Abdomen/GI: Inspection: abdomen appears normal, Bowel sounds: normal, Palpation: soft, in all quadrants, mild abdominal tenderness, in the anterior aspect of right lateral abdomen, Vital Signs: 21:03 BP 134 / 89; Pulse 72; Resp 18 S; Temp 97.2(TE); Pulse Ox 97% on R/A; Weight 104.78 kg as6 (R); Height 5 ft. 9 in. (R); Pain 3/10; 22:00 BP 117 / 70; Pulse 73; Resp 16; Pulse Ox 96% ; jj7 22:40 BP 109 / 80; Pulse 69; Resp 20; Temp 97.9; Pulse Ox 97% ; jj7 21:03 Body Mass Index 34.11 (104.78 kg, 175.26 cm) as6 21:03 Pain Scale: Adult as6 MDM: 20:53 Patient medically screened. kb 22:38 Differential diagnosis: appendicitis, non-specific abd pain, Ureterolithiasis. Data kb reviewed: vital signs, nurses notes. Counseling: I had a detailed discussion with the patient and/or guardian regarding the historical points, exam findings, and any diagnostic results supporting the discharge/admit diagnosis, lab results, radiology results, the need for outpatient follow up, a family practitioner, a splicer operator, to return to the emergency department if symptoms worsen or persist or if there are any questions or concerns that arise at home. 06/11 20:58 Order name: CBC with Diff; Complete Time: 21:51 kb 06/11 20:58 Order name: CMP; Complete Time: 21:51 kb 06/11 20:58 Order name: Lipase; Complete Time: 21:51 kb 06/11 20:58 Order name: CT Stone Protocol; Complete Time: 22:07 kb 06/11 20:58 Order name: IV Saline Lock; Complete Time: 21:20 kb 06/11 20:58 Order name: Labs collected and sent; Complete Time: 21:21 kb Administered Medications: No medications were administered Disposition: 06/12 01:49 Co-signature as Attending Physician, Anthony Leblanc MD I agree with the assessment sp4 and plan of care. I reviewed the patient's care provided by the Advanced Practice Provider and agree with the diagnosis and treatment plan. Disposition Summary: 06/12/23 22:38 Discharge Ordered Notes: Location: Home kb Condition: Stable kb Diagnosis - Lower abdominal pain, unspecified kb Followup: kb - With: Private Physician - When: 2 - 3 days - Reason: Recheck today's complaints, Continuance of care, Re-evaluation by your physician Followup: kb - With: Emergency Department - When: As needed - Reason: Worsening of condition Discharge Instructions: - Discharge Summary Sheet kb - Abdominal Pain, Adult, [id number] kb Forms: - Medication Reconciliation Form kb - Thank You Letter kb - Antibiotic Education kb - Prescription Opioid Use kb - Patient Portal Instructions kb - Leadership Thank You Letter kb Signatures: Dispatcher [employer] EDMS Diana Benites, HEALTH POLICY NURSE-C ARMEN-Matty Ross RN RN as6 Anthony Leblanc MD MD sp4 Corrections: (The following items were deleted from the chart) 06/11 20:58 20:58 Stone Protocol+CT.RAD.BRZ ordered. EDMS EDMS 20:58 20:58 CBC+H.LAB.BRZ ordered. EDMS EDMS 20:58 20:58 COMPREHENSIVE METABOLIC PANEL+C.LAB.BRZ ordered. EDMS EDMS 20:58 20:58 LIPASE+C.LAB.BRZ ordered. EDMS EDMS
[2023-06-13 21:00] VITALS: BP 109/80; TEMP 97.9; O2SAT 97
== END 2023-06-12 22:52 | disposition home or self-care (01) ==
LOC: ER 20:43
DX: R10.31 Right lower quadrant pain (principal); Z88.8 Allergy status to other drugs, medicaments and biological substances
CPT/HCPCS: 36415; 74176; 76377; 80053; 83690; 85025; 99284

== ENCOUNTER 2024-02-08 08:40 | Day surgery (SDC) | payer OTHER ==
[2024-02-08] MEDS: Ringers Lactate 1,000 ML IV ONE (09:05)
[2024-02-08] MEDS ORDERED: MIDAZOLAM HCL 2 MG/2 ML INJ ONE (10:02)
[2024-02-08] MEDS ORDERED: LIDOCAINE 2% MPF 5 ML VIAL ONE (10:02)
[2024-02-08] MEDS ORDERED: propofoL 200 MG/20 ML VIAL IV ONE (10:02)
[2024-02-08] MEDS ORDERED: FENTANYL CITR 100 MCG/2 ML ONE (10:02)
[2024-02-08] MEDS ORDERED: ONDANSETRON 4 MG/2 ML VIAL ONE (10:02)
[2024-02-08] MEDS ORDERED: ROCURONIUM 50 MG/5 ML VIAL IV ONE (10:02)
[2024-02-08] MEDS ORDERED: HYDROMORPHONE HCL 1 MG/ML INJ ONE (10:08)
[2024-02-08] MEDS ORDERED: SUGAMMADEX SODIUM 200 MG/2 ML VIAL IV ONE (10:08)
[2024-02-08] MEDS ORDERED: dexAMETHasone 10 MG/ML VIAL ONE (10:14)
[2024-02-08] MEDS: CEFAZOLIN SODIUM 2 GM/VIAL ONE (10:20)
[2024-02-08] MEDS: LIDOCAINE HCL/EPINEPHRINE 20 ML MDV ONE (10:27)
[2024-02-08] MEDS ORDERED: KETOROLAC 30 MG/ML INJ ONE (10:46)
--- NOTE | 2024-02-08 11:02 | P.OP ---
Preoperative diagnosis: Umbilical Hernia Postoperative diagnosis: Umbilical Hernia Primary procedure: Laparoscopic Umbilical Hernia Repair with mesh Anesthesia: GETA + Local Estimated blood loss: <5cc Specimen: Hernia Contents Findings: ~ 2cm umbilical hernia Complications: None Implants: Bard Ventralite ST 11.4cm, Sorbafix x 45 Transferred to: Recovery Room Condition: Good
[2024-02-08] MEDS: HYDROCODONE/APAP 7.5/325 MG TAB ONE (12:47)
[2024-02-08 13:54] VITALS: BP 128/72; TEMP 97.3; O2SAT 97
--- NOTE | 2024-02-08 15:47 | EKG ---
Test Date: 2024-02-07 Test Time: 09:00:30 Superannuation Clerk: ABDIRAHMAN MEASUREMENT RESULTS: Intervals: Rate: 68 NM: 178 QRSD: 106 QT: 412 QTc: 438 [place]ena: P: 46 NM: 178 QRS: 55 T: 46 INTERPRETIVE STATEMENTS: Normal sinus rhythm Nonspecific ST abnormality Abnormal ECG Compared to ECG 07/26/2019 04:00:22 ST (T wave) deviation now present T-wave abnormality no longer present Electronically Signed On 02-08-24 15:46:08 ALTERATIONS WORKROOM CLERK by Isaac Ochoa
--- NOTE | 2024-02-08 21:45 | OP ---
Date of Procedure: 02/08/2024 Surgeon: Alexander Castillo MD, Preoperative Diagnosis: Umbilical hernia. Postoperative Diagnosis: Umbilical hernia. Procedure Performed: Laparoscopic umbilical hernia repair with mesh. Anesthesia: General endotracheal plus local. Estimated Blood Loss: 5 cc. Specimens: Hernia contents. Findings: Approximately 2 cm umbilical hernia. Complications: None. Implants: Bard Ventralight ST mesh with Echo Positioning System, 11.4 cm round mesh utilized, SorbaF ix absorbable fixation tacks x45. Disposition: The patient was transferred to recovery room in good condition. Procedure In Detail: After informed consent was obtained, the patient was brought to the operating r oom, prepped and draped in usual sterile fashion. After adequate anesthesia was achieved, I anesthet ized an area in the left upper quadrant down to subcutaneous tissues. A 5-mm 0-degree optical trocar was introduced in the abdomen without incident or complication. Insufflation was obtained to 15 mmH g. There was no injury to vital structures upon entering the abdomen. Additional trocar was placed in the left mid abdomen. A 12 mm trocar was placed under direct visualization without incident or co mplication. I then proceeded to take down the preperitoneal fat and adipose tissue from the hernia s ac which was in the umbilical position. This was sent off for pathologic examination after being swe pt back the preperitoneal fat back to allow for appropriate landing zone and pressure rectus sheath. At this point, I closed the hernia defect, imbricating the hernia sac using 0 V-Loc suture with an E ndo Stitch in a running fashion with good approximation of the tissues. I then deployed a 1.4 cm Bar d Ventralight ST mesh with Echo Positioning System at the supraumbilical position through a separate stab incision. I then secured the mesh to the anterior bowel wall using absorbable fixation tacks. At this point, I removed the balloon deployment system, found to be intact on back table. At this po int, a total of 45 SorbaFix absorbable fixation tacks were used to secure the mesh in a double crown type orientation with good approximation of the mesh. No additional hemostasis was required. I then closed the 12 mm trocar site using a Karthik-Samuel suture passer with an 0 Vicryl in interrupted f ashion with good approximation of tissues. The abdomen was then desufflated under direct visualizati on without incident or complication. Remaining trocars were removed. All skin incisions were then c opiously irrigated and closed with a 4-0 Monocryl in a running fashion. Dermabond was placed over to p. The patient tolerated the procedure without incident or complication, transferred to PACU in good condition. All counts were correct at the end of the case. JOVANNA/PAULA Voice ID: [id number] Report ID: [id number]
== END 2024-02-08 13:45 | disposition home or self-care (01) ==
LOC: OR 08:40
PROVIDERS: ATTEND Surgery
PROC: 0WUF4JZ Supplement Abdominal Wall with Synthetic Substitute, Percutaneous Endoscopic Approach (ICD-10-PCS; principal; 2024-02-08 10:00)
DX: K42.9 Umbilical hernia without obstruction or gangrene (principal)
CPT/HCPCS: 93005; 80048; 36415; 88302; 49591; J2704; J2003; J2250; J3010; J1100; J1171; J2405; J7120; C1781

== ENCOUNTER 2024-05-20 06:42 | Emergency (ER) | payer OTHER ==
--- OUTSIDE RECORDS SUMMARY | 2024-05-20 06:44 | XMS REPORT | Continuity of Care Document ---
Author Name Unknown Address [address] [address] [place], [place] [id number] [place] [address] [facility] Address [address] [facility] [place] [address] Care Team Providers Care Feed House Supervisor Name Role Phone DR DONITA VELASCO Attending Clinician Unavailable JO RIVAS Attending Clinician Unavailable DR DONITA VELASCO Admitting Clinician Unavailable Encounters Start Date/Time End Date/Time Encounter Type Admission Type Attending Clinicians Care Facility Care Department Encounter ID Source 2017-03-09 10:30:00 Inpatient C DONITA VELASCO [facility] [place] [id number] [facility] 2022-03-10 15:15:00 2022-03-10 15:15:00 Outpatient JO RIVAS [id number] Catina Plasencia 2022-03-08 15:15:00 2022-03-08 15:15:00 Outpatient JO RIVAS [id number] Catina Plasencia
[2024-05-20 07:52] LABS: Influenza A Ag Negative; Influenza B Ag Negative; SARS-CoV-2 Antigen Rapid Res Negative (Negative)
--- NOTE | 2024-05-20 08:00 | ER ---
Nurse's Notes [facility] Name: Aidan Gagnon Age: 44 yrs Sex: Male : 1980 Arrival Date: 05/20/2024 Time: 06:42 Bed 8 Private MD: Diagnosis: Acute upper respiratory infection, unspecified Presentation: 05/20 06:58 Chief complaint: Patient states: C/O SORE THROAT, NASAL/CHEST CONGESTION, br2 CHILLS...DENIES N/V/D, BEGAN YESTERDAY. Coronavirus screen: Client denies travel out of the [place] in the last 14 days. Ebola Screen: Patient denies exposure to infectious person. Initial Sepsis Screen: Does the patient meet any 2 criteria? No. Patient's initial sepsis screen is negative. Does the patient have a suspected source of infection? No. Patient's initial sepsis screen is negative. Risk Assessment: Do you want to hurt yourself or someone else? Patient reports no desire to harm self or others. Onset of symptoms was May 19, 2024. 06:58 Method Of Arrival: Ambulatory br2 06:58 Acuity: ELSY 4 br2 Triage Assessment: 07:01 General: Appears in no apparent distress. comfortable, Behavior is calm, cooperative. br2 Pain: Complains of pain in neck Pain currently is 6 out of 10 on a pain scale. Historical: - Allergies: 07:01 steroids; br2 - PMHx: 07:01 Hypertension; br2 - Immunization history:: Adult Immunizations not up to date. - Infectious Disease History:: Denies. - Social history:: Smoking status: Patient denies any tobacco usage or history of. Patient/guardian denies using alcohol, street drugs. - Family history:: not pertinent. - Hospitalizations: : No recent hospitalization is reported. Screenin:15 [facility] ED Fall Risk Assessment (Adult) History of falling in the last 3 months, kc6 including since admission No falls in past 3 months (0 pts) Confusion or Disorientation No (0 pts) Intoxicated or Sedated No (0 pts) Impaired Gait No (0 pts) Mobility Assist Device Used No (0 pt) Altered Elimination No (0 pt) Score/Fall Risk Level 0 - 2 = Low Risk Oriented to surroundings, Maintained a safe environment, Educated pt \T\ family on fall prevention, incl call for assistance when getting out of bed. Abuse screen: Denies threats or abuse. Denies injuries from another. Nutritional screening: No deficits noted. Tuberculosis screening: No symptoms or risk factors identified. Assessment: 07:16 General: Appears in no apparent distress. comfortable, well groomed, well developed, kc6 Behavior is calm, cooperative, appropriate for age, Reports chills for 12-24 hours, fever for 12-24 hours, feeling ill for 12-24 hours. Pain: Denies pain. Neuro: Level of Consciousness is awake, alert, obeys commands, Oriented to person, place, time, situation, Appropriate for age. Cardiovascular: Capillary refill < 3 seconds. Respiratory: Reports cough that is productive, Airway is patent Trachea midline Respiratory effort is even, unlabored, Respiratory pattern is regular, symmetrical. GI: No signs and/or symptoms were reported involving the gastrointestinal system. : No signs and/or symptoms were reported regarding the genitourinary system. EENT: Throat is reddened bilaterally with gag reflex present, Reports nasal congestion pain when swallowing. Derm: No signs and/or symptoms reported regarding the dermatologic system. Skin is intact, is healthy with good turgor, Skin is pink, warm \T\ dry. Musculoskeletal: No signs and/or symptoms reported regarding the musculoskeletal system. Circulation, motion, and sensation intact. Range of motion: intact in all extremities. 08:13 Reassessment: Patient appears in no apparent distress at this time. No changes from kc6 previously documented assessment. Patient and/or family updated on plan of care and expected duration. Pain level reassessed. Patient is alert, oriented x 3, equal unlabored respirations, skin warm/dry/pink. Vital Signs: 06:58 BP 139 / 77; Pulse 79; Resp 18 S; Temp 98.7(O); Pulse Ox 100% ; Weight 106.59 kg; br2 Height 5 ft. 8 in. ; Pain 6/10; 08:13 BP 125 / 86; Pulse 68; Resp 16 S; Pulse Ox 100% on R/A; kc6 06:58 Body Mass Index 35.73 (106.59 kg, 172.72 cm) br2 06:58 Pain Scale: Adult br2 ED Course: 06:48 Patient arrived in ED. gm2 07:00 Report received from Zainab L., RN. kc6 07:01 Elder Hansen MD is Attending Physician. rn 07:01 Triage completed. br2 07:01 Arm band placed on. br2 07:05 Afshan Fields, ROBINSON is Primary Nurse. kc6 07:15 Patient has correct armband on for positive identification. Bed in low position. [place] kc6 light in reach. Side rails up X 1. Pulse ox on. NIBP on. Door closed. Noise minimized. Lights dimmed. Pillow given. Verbal reassurance given. 07:16 COVID swab sent to lab. Flu and/or RSV swab sent to lab. Strep swab sent to lab. kc6 Patient maintains SpO2 saturation greater than 95% on room air. 08:13 No provider procedures requiring assistance completed. Patient did not have IV access kc6 during this emergency room visit. Administered Medications: No medications were administered Medication: 08:14 VIS not applicable for this client. kc6 Outcome: 08:00 Discharge ordered by . rn 08:13 Discharged to home ambulatory, with significant other, [facility] 08:13 Condition: good 08:13 Discharge instructions given to patient, significant other, Instructed on discharge instructions, follow up and referral plans. Demonstrated understanding of instructions, follow-up care, 08:14 Patient left the ED. kc6 Signatures: Elder Hansen MD MD rn Campbell, Kaitlyn, RN RN kc6 Nahomy Rodriguez 2 Guerline Martinez RN RN br2
--- NOTE | 2024-05-20 08:00 | EDPHYS ---
Physician Documentation [facility] Name: Aidan Gagnon Age: 44 yrs Sex: Male : 1980 Arrival Date: 05/20/2024 Time: 06:42 Bed 8 Private MD: ED Physician Elder Hansen HPI: 05/20 07:13 This 44 yrs old Male presents to ER via Ambulatory with complaints of Flu rn Symptoms, Cough, Chest Congestion, Fever. 07:13 The patient or guardian reports cough, flu symptoms. Onset: The symptoms/episode rn began/occurred 2 day(s) ago. Severity of symptoms: At their worst the symptoms were mild, in the emergency department the symptoms are unchanged. Modifying factors: The symptoms are alleviated by nothing, the symptoms are aggravated by nothing. Associated signs and symptoms: Pertinent positives: fever, rhinorrhea, sore throat. The patient has experienced similar episodes in the past. Historical: - Allergies: 07:01 steroids; br2 - PMHx: 07:01 Hypertension; br2 - Immunization history:: Adult Immunizations not up to date. - Infectious Disease History:: Denies. - Social history:: Smoking status: Patient denies any tobacco usage or history of. Patient/guardian denies using alcohol, street drugs. - Family history:: not pertinent. - Hospitalizations: : No recent hospitalization is reported. ROS: 07:13 Constitutional: Positive for fever and chills Eyes: Negative for injury, pain, redness, rn and discharge, ENT: Positive for nasal congestion and sore throat Neck: Negative for injury, pain, and swelling, Cardiovascular: Negative for chest pain, palpitations, and edema, Respiratory: Positive for nonproductive cough, negative for shortness of breath or wheezing Abdomen/GI: Negative for abdominal pain, nausea, vomiting, diarrhea, and constipation, Back: Negative for injury and pain, : Negative for injury, bleeding, discharge, and swelling, MS/Extremity: Negative for injury and deformity, Skin: Negative for injury, rash, and discoloration, Neuro: Negative for headache, weakness, numbness, tingling, and seizure, Exam: 07:13 Constitutional: This is a well developed, well nourished patient who is awake, alert, rn and in no acute distress. Head/Face: Normocephalic, atraumatic. ENT: Mild pharyngeal erythema, no exudate, uvula midline, no stridor Neck: No cervical lymphadenopathy or tenderness. No meningismus Cardiovascular: Regular rate and rhythm. No pulse deficits. Respiratory: No increased work of breathing, no retractions or nasal flaring. Skin: Warm, dry Vital Signs: 06:58 BP 139 / 77; Pulse 79; Resp 18 S; Temp 98.7(O); Pulse Ox 100% ; Weight 106.59 kg; br2 Height 5 ft. 8 in. ; Pain 6/10; 08:13 BP 125 / 86; Pulse 68; Resp 16 S; Pulse Ox 100% on R/A; kc6 06:58 Body Mass Index 35.73 (106.59 kg, 172.72 cm) br2 06:58 Pain Scale: Adult br2 MDM: 07:01 Medical Screening Exam initiated rn 07:57 Differential Diagnosis: Influenza Upper Respiratory Infection Viral Syndrome. Data rn reviewed: vital signs, nurses notes, lab test result(s), and as a result, I will discharge patient. Counseling: I had a detailed discussion with the patient and/or guardian regarding the historical points, exam findings, and any diagnostic results supporting the discharge/admit diagnosis, lab results, the need for outpatient follow up, to return to the emergency department if symptoms worsen or persist or if there are any questions or concerns that arise at home. Special discussion: I discussed with the patient/guardian in detail that at this point there is no indication for admission to the hospital. It is understood, however, that if the symptoms persist or worsen the patient needs to return immediately for re-evaluation. ED course: Most likely viral syndrome. Flu and COVID-negative. Strep negative. Normal oxygen. O2 100% on pulse ox. Will discharge home with [id number] medication, no antibiotics indicated at this time.. 05/20 07:09 Order name: COVID-19 Ag + Flu A+B Ag; Complete Time: 07:57 rn 05/20 07:11 Order name: Group A Streptococcus Rapid; Complete Time: 07:57 rn 05/20 07:39 Order name: Throat Culture EDMS Administered Medications: No medications were administered Disposition Summary: 05/20/24 08:00 Discharge Ordered Notes: Location: Home rn Problem: new rn Symptoms: are unchanged rn Condition: Stable rn Diagnosis - Acute upper respiratory infection, unspecified rn Followup: rn - With: Private Physician - When: As needed - Reason: Recheck today's complaints, Re-evaluation by your physician Discharge Instructions: - Discharge Summary Sheet rn - Upper Respiratory Infection, Adult rn - Viral Respiratory Infection rn Forms: - Medication Reconciliation Form rn - Antibiotic harness rigger - Prescription Opioid Use rn - Patient Portal Instructions rn - Leadership Thank You Letter rn - Work release form kc6 Signatures: Dispatcher [employer] EDElder Kay MD MD rn Riddle, Belinda, RN RN br2 Corrections: (The following items were deleted from the chart) 07:11 07:11 Group A Streptococcus Rapid Sc+I.LAB.BRZ ordered. EDLA EDMS
[2024-05-20 08:31] VITALS: TEMP 98.7; O2SAT 100
[2024-05-20 08:32] VITALS: BP 125/86
== END 2024-05-20 08:14 | disposition home or self-care (01) ==
LOC: ER 06:42
DX: J06.9 Acute upper respiratory infection, unspecified (principal); Z11.52 Encounter for screening for COVID-19
CPT/HCPCS: 36415; 87070; 87428; 99283

== ENCOUNTER 2024-07-10 19:04 | Emergency (ER) | payer OTHER ==
--- OUTSIDE RECORDS SUMMARY | 2024-07-10 19:07 | XMS REPORT | Continuity of Care Document ---
Author Name Unknown Address [address] [facility] [address] [place], [place] [id number] [place] [address] [facility] Address [address] [facility]. [address] [place] [address] Care Team Providers Care Coding Coordinator Name Role Phone DR DONITA VELASCO Attending Clinician Unavailable JO RIVAS Attending Clinician Unavailable DR DONITA VELASCO Admitting Clinician Unavailable Encounters Start Date/Time End Date/Time Encounter Type Admission Type Attending Clinicians Care Facility Care Department Encounter ID Source 2017-03-09 10:30:00 Inpatient C DONITA VELASCO [facility] [place] [id number] [facility] 2022-03-10 15:15:00 2022-03-10 15:15:00 Outpatient JO RIVAS [id number] Catina Plasencia 2022-03-08 15:15:00 2022-03-08 15:15:00 Outpatient JO RIVAS [id number] Catina Plasencia
[2024-07-10] MEDS ORDERED: ONDANSETRON 4 MG/2 ML VIAL ONE (21:31)
--- NOTE | 2024-07-10 21:31 | RAD REPORT ---
EXAMINATION: US Abdomen Exam Limited CLINICAL HISTORY: [facility] MAIN N gallbladder;Abd pain Bed Name: IW2 COMPARISON: None. TECHNIQUE: Limited upper abdominal grayscale and color flow sonographic images. FINDINGS: Gallbladder: Contracted gallbladder limiting evaluation. Small echogenic nonmobile 4 mm focus may rep resent a small polyp or adherent stone. Gallbladder wall is not thickened, 2 mm. No pericholecystic fluid. Reportedly negative sonographic Mcgill sign. Bile ducts: No intrahepatic or extrahepatic biliary dilatation. Common bile duct measures 2 mm. Liver: Visualized portions of the liver demonstrate diffuse parenchymal echogenicity suggesting steat osis. Fluid: No ascites. IMPRESSION: Small polyp versus adherent calculus measuring 4 mm. Hyperechogenicity of the visualized liver parenchyma suggesting steatosis. No other abnormalities.
[2024-07-10] MEDS ORDERED: KETOROLAC 30 MG/ML INJ ONE (21:32)
[2024-07-10 22:01] LABS: Absolute Basophils 0.1 K/uL (0-0.5); Absolute Eosinophils 0.8 K/uL (0-0.5); Absolute Lymphocytes (CBC) 2.2 K/uL (0.7-4.9); Absolute Monocytes 0.3 K/uL (0.1-1.3); Absolute Neutrophil 4.3 K/uL (1.8-8.0); Basophils % 0.9 % (0-1.3); Eosinophils % 10.8 % (0-4.4); Hematocrit 45.6 % (39.6-49.0); Hemoglobin 16.3 g/dL (13.6-17.9); Lymphocytes % 28.7 % (15.3-44.8); MCH 31.1 pg (27.0-35.0); MCHC 35.9 g/dL (32.0-36.0); MCV 86.6 fL (80-100); MPV 8.6 fL (7.6-11.3); Monocytes % 4.4 % (3.3-12.3); Neutrophils % 55.2 % (41.7-73.7); Nucleated Red Blood Cells % 0.1 % (0-0); Platelets 166 thou/uL (152-406); RBC Red Blood Cell Count 5.26 M/uL (4.33-5.43); Red Cell Distribution Width 13.4 % (12.1-15.2)
[2024-07-10 22:27] LABS: Albumin 3.9 g/dL (3.4-5.0); Albumin/Globulin Ratio 1.1 (1.1-1.8); Anion Gap 9.6 mEq/L (5.0-15.0); Bilirubin Total 1.1 mg/dL (0.2-1.0); Globulin 3.6 g/dL (2.3-3.5); Protein, Total 7.5 g/dL (6.4-8.2)
[2024-07-10 22:34] LABS: Potassium 3.6 mEq/L (3.5-5.1)
--- NOTE | 2024-07-10 22:38 | EDPHYS ---
Physician Documentation [facility] Name: Aidan Gagnon Age: 44 yrs Sex: Male : 1980 Arrival Date: 07/10/2024 Time: 19:04 Bed 7 Private MD: ED Physician Afsaneh Epstein HPI: 07/10 21:18 This 44 yrs old Male presents to ER via Ambulatory with complaints of Flank gb1 Pain. 21:18 44-year-old male presents with right flank pain. He has a history of gb1 hypertension, fatty liver disease. He denies any surgeries. He has some nausea no vomiting or diarrhea. He denies any fever or chills. He states that he was told to lose weight for fatty liver but has not yet done that either. The pain comes and goes when he eats. He is traveling in [place] tomorrow for vacation and wants to get checked out before he goes.. Historical: - Allergies: 20:00 steroids; cm10 - PMHx: 20:00 Hypertension; Fatty liver; cm10 - Immunization history:: Adult Immunizations up to date. - Infectious Disease History:: Denies. - Social history:: Smoking status: Patient denies any tobacco usage or history of. Exam: 21:18 Constitutional: This is a well developed, well nourished patient who is awake, alert, gb1 and in no acute distress. Head/Face: Normocephalic, atraumatic. Eyes: Pupils equal round and reactive to light, extra-ocular motions intact. Lids and lashes normal. Conjunctiva and sclera are non-icteric and not injected. Cornea within normal limits. Periorbital areas with no swelling, redness, or edema. ENT: Nares patent. No nasal discharge, no septal abnormalities noted. Tympanic membranes are normal and external auditory canals are clear. Oropharynx with no redness, swelling, or masses, exudates, or evidence of obstruction, uvula midline. Mucous membranes moist. Neck: Trachea midline, no thyromegaly or masses palpated, and no cervical lymphadenopathy. Supple, full range of motion without nuchal rigidity, or vertebral point tenderness. No Meningismus. Chest/axilla: Normal chest wall appearance and motion. Nontender with no deformity. No lesions are appreciated. Cardiovascular: Regular rate and rhythm with a normal S1 and S2. No gallops, murmurs, or rubs. Normal PMI, no JVD. No pulse deficits. Respiratory: Lungs have equal breath sounds bilaterally, clear to auscultation and percussion. No rales, rhonchi or wheezes noted. No increased work of breathing, no retractions or nasal flaring. Abdomen/GI: Soft, non-tender, with normal bowel sounds. No distension or tympany. No guarding or rebound. No evidence of tenderness throughout. Back: No spinal tenderness. No costovertebral tenderness. Full range of motion. Skin: Warm, dry with normal turgor. Normal color with no rashes, no lesions, and no evidence of cellulitis. MS/ Extremity: Pulses equal, no cyanosis. Neurovascular intact. Full, normal range of motion. Vital Signs: 19:59 BP 129 / 88; Pulse 76; Resp 16; Temp 98.3; Pulse Ox 98% on R/A; Weight 104.33 kg; cm10 Height 5 ft. 8 in. ; Pain 3/10; 22:46 BP 124 / 84; Pulse 64; Resp 18; Pulse Ox 98% on R/A; km10 19:59 Body Mass Index 34.97 (104.33 kg, 172.72 cm) cm10 19:59 Pain Scale: Adult cm10 MDM: 20:34 Medical Screening Exam initiated gb1 21:18 Differential diagnosis: nephrolithiasis, pyelonephritis, pancreatitis. Data reviewed: gb1 vital signs, nurses notes. ED course: 44-year-old male with right flank pain. Differential diagnosis includes obstructing ureterolithiasis, acute pyelonephritis, acute cholecystitis versus biliary colic. Patient also has a history of fatty liver disease nonalcoholic as he is not a drinker. I have ordered abdominal labs with a lipase also consider acute pancreatitis. Right upper quadrant ultrasound is pending to evaluate the gallbladder.. 22:37 ED course: Patient has a mild transaminitis. No acute pancreatitis. Lipase is normal. gb1 Patient's ultrasound does not show cholelithiasis I doubt biliary colic or acute cholecystitis with gallstones. I do recommend the patient see his primary care doctor and consider GI versus hepatology for likely what this is is AGUIRRE. I given patient discharge instructions which he is compliant with. I will prescribe Bentyl for pain.. 07/10 20:16 Order name: CBC with Diff; Complete Time: 22:36 gb1 07/10 20:16 Order name: CMP; Complete Time: 22:36 gb1 07/10 20:16 Order name: Lipase; Complete Time: 22:36 gb1 07/10 20:36 Order name: US Abdomen Limited; Complete Time: 21:38 gb1 07/10 20:16 Order name: IV Saline Lock; Complete Time: 21:40 gb1 07/10 20:16 Order name: Labs collected and sent; Complete Time: 21:40 gb1 Administered Medications: 21:44 Drug: Ketorolac IVP 30 mg IVP once Route: IVP; Site: left antecubital; km10 22:58 Follow up: Response: No adverse reaction; Marked relief of symptoms km10 21:44 Drug: Ondansetron IVP 4 mg IVP once; over 2 minutes Route: IVP; Site: left antecubital; km10 22:58 Follow up: Response: No adverse reaction; Marked relief of symptoms km10 Disposition Summary: 07/10/24 22:38 Discharge Ordered Notes: Location: Home gb1 Condition: Stable gb1 Diagnosis - Fatty (change of) liver, not elsewhere classified gb1 Followup: gb1 - With: Kip Moulton MD - When: - Reason: Further diagnostic work-up, Continuance of care Discharge Instructions: - Discharge Summary Sheet gb1 - Fatty Liver Disease gb1 Forms: - Medication Reconciliation Form gb1 - Antibiotic Education gb1 - Prescription Opioid Use gb1 - Patient Portal Instructions gb1 - Leadership Thank You Letter gb1 Prescriptions: - dicyclomine 10 mg Oral capsule - take 1 capsule ORAL route 3 times per day; 30 capsule; Refills: 0, Product gb1 Selection Permitted Signatures: Dispatcher [employer] EDMS Lizette Schreiber, RN RN cm10 Afsaneh Epstein MD MD gb1 Mitzy Herron RN RN km10 Corrections: (The following items were deleted from the chart) 20:17 20:17 CBC+H.LAB.BRZ ordered. EDMS EDMS 20:17 20:17 COMPREHENSIVE METABOLIC PANEL+C.LAB.BRZ ordered. EDMS EDMS 20:17 20:17 LIPASE+C.LAB.BRZ ordered. EDMS EDMS
--- NOTE | 2024-07-10 22:38 | ER ---
Nurse's Notes [facility] Name: Aidan Gagnon Age: 44 yrs Sex: Male : 1980 Arrival Date: 07/10/2024 Time: 19:04 Bed 7 Private MD: Diagnosis: Fatty (change of) liver, not elsewhere classified Presentation: 07/10 19:59 Chief complaint: Patient states: Right flank pain that radiates to his abdomen onset a cm10 while back and got worse 2 days ago. Pt reports nausea. No vomiting. Coronavirus screen: Client denies travel out of the [place] in the last 14 days. Ebola Screen: Patient denies travel to an Ebola-affected area in the 21 days before illness onset. Initial Sepsis Screen: Does the patient meet any 2 criteria? No. Patient's initial sepsis screen is negative. Does the patient have a suspected source of infection? No. Patient's initial sepsis screen is negative. Risk Assessment: Do you want to hurt yourself or someone else? Patient reports no desire to harm self or others. Onset of symptoms was July 10, 2024. 19:59 Method Of Arrival: Ambulatory cm10 19:59 Acuity: ELSY 3 cm10 Triage Assessment: 20:01 General: Appears in no apparent distress. uncomfortable, Behavior is calm, cooperative. cm10 Pain: Complains of pain in right flank Pain radiates to abdomen Pain currently is 3 out of 10 on a pain scale. Neuro: No deficits noted. Level of Consciousness is awake, alert, obeys commands, Oriented to person, place, time, situation, Appropriate for age. Respiratory: No deficits noted. Airway is patent Respiratory effort is even, unlabored, Respiratory pattern is regular, symmetrical. GI: Reports lower abdominal pain, upper abdominal pain, nausea. Historical: - Allergies: 20:00 steroids; cm10 - PMHx: 20:00 Hypertension; Fatty liver; cm10 - Immunization history:: Adult Immunizations up to date. - Infectious Disease History:: Denies. - Social history:: Smoking status: Patient denies any tobacco usage or history of. Screenin:[facility] ED Fall Risk Assessment (Adult) History of falling in the last 3 months, km10 including since admission No falls in past 3 months (0 pts) Confusion or Disorientation No (0 pts) Intoxicated or Sedated No (0 pts) Impaired Gait No (0 pts) Mobility Assist Device Used No (0 pt) Altered Elimination No (0 pt) Score/Fall Risk Level 0 - 2 = Low Risk. Abuse screen: Denies threats or abuse. Denies injuries from another. Nutritional screening: No deficits noted. Tuberculosis screening: No symptoms or risk factors identified. Assessment: 21:20 General: Appears in no apparent distress. Behavior is calm, cooperative. Pain: km10 Complains of pain in right low back Pain radiates to right lower quadrant Pain currently is 3 out of 10 on a pain scale. Pain began years ago. "more uncomfortable today than usual". 21:20 Neuro: Level of Consciousness is awake, alert, Oriented to person, place, time, km10 situation. Cardiovascular: Capillary refill < 3 seconds. Respiratory: Airway is patent Respiratory effort is even, unlabored. : Reports pain in right flank(s). 21:20 GI: Reports nausea. km10 22:30 Reassessment: Patient and/or family updated on plan of care and expected duration. Pain ha1 level reassessed. Patient is alert, oriented x 3, equal unlabored respirations, skin warm/dry/pink. Vital Signs: 19:59 BP 129 / 88; Pulse 76; Resp 16; Temp 98.3; Pulse Ox 98% on R/A; Weight 104.33 kg; cm10 Height 5 ft. 8 in. ; Pain 3/10; 22:46 BP 124 / 84; Pulse 64; Resp 18; Pulse Ox 98% on R/A; km10 19:59 Body Mass Index 34.97 (104.33 kg, 172.72 cm) cm10 19:59 Pain Scale: Adult cm10 ED Course: 19:06 Patient arrived in ED. im 20:00 Triage completed. cm10 20:00 Arm band placed on right wrist. Patient placed in waiting room, Patient notified of cm10 wait time. 20:00 Patient has correct armband on for positive identification. Bed in low position. Call km10 light in reach. Side rails up X 1. Adult w/ patient. Provided Education on: plan of care. 20:04 Afsaneh Epstein MD is Attending Physician. gb1 21:10 US Abdomen Limited In Process Unspecified. EDMS 21:27 Mitzy Herron RN is Primary Nurse. km10 21:40 CBC with Diff Sent. ha1 21:40 CMP Sent. ha1 21:40 Lipase Sent. ha1 21:40 Inserted saline lock: 20 gauge antecubital area, using aseptic technique. Blood ha1 collected. Flushed with 10 mL NS. 22:38 Kip Moulton MD is Referral Physician. gb1 22:56 No provider procedures requiring assistance completed. IV discontinued, intact, km10 bleeding controlled, No redness/swelling at site. Pressure dressing applied. Administered Medications: 21:44 Drug: Ketorolac IVP 30 mg IVP once Route: IVP; Site: left antecubital; km10 22:58 Follow up: Response: No adverse reaction; Marked relief of symptoms km10 21:44 Drug: Ondansetron IVP 4 mg IVP once; over 2 minutes Route: IVP; Site: left antecubital; km10 22:58 Follow up: Response: No adverse reaction; Marked relief of symptoms km10 Medication: 22:57 VIS not applicable for this client. km10 Outcome: 22:38 Discharge ordered by . 1 22:57 Discharged to home ambulatory, with family, km10 22:57 Condition: stable 22:57 Discharge instructions given to patient, family, Instructed on discharge instructions, follow up and referral plans. medication usage, Demonstrated understanding of instructions, medications, Prescriptions given X 1, 22:58 Patient left the ED. km10 Signatures: Dispatcher [employer] EDMS Sierra Castaneda RN RN ha1 Dia Brown Clarissa, RN RN cm10 Afsaneh Epstein MD MD gb1 Mitzy Herron RN RN km10
[2024-07-10 23:35] VITALS: TEMP 98.3; O2SAT 98
[2024-07-10 23:37] VITALS: BP 124/84
== END 2024-07-10 22:58 | disposition home or self-care (01) ==
LOC: ER 19:04
DX: K76.0 Fatty (change of) liver, not elsewhere classified (principal)
CPT/HCPCS: 85025; 36415; 83690; 80053; 76705; 96375; 96374; 99284; J2405